=== PATIENT | female | born 1940 | race African-American/Black ===

== ENCOUNTER → 2017-02-03 | Outpatient (CLI) | payer MEDICARE, OTHER ==
[~2017-02-03] MED LIST: ACETAMINOPHEN-H1 TA2 PO; AMARYL1 M1 PO; ASPIR-TRIN325 MG PO; ASPIRIN325 MG PO; COREG25 MG PO; FENOFIBRATE160 MG PO; FUROSEMIDE40 MG PO; KLOR-CON SPRIN10 MEQ PO; MEDROL DOSEPAK4 MG PO; NEURONTIN300 MG PO; NORVASC5 MG PO; VIBRAMYCIN100 MG PO; VICODIN 500 MG-1 TAB PO; ZITHROMAX Z PA250 MG PO
[2017-02-03 13:10] LABS: BASO % 0.4 % (0.0-1.0); EOS # 0.1 10*3/uL (0.0-0.4); EOS % 1.1 % (1.0-4.0); HEMATOCRIT 35.9 % (37.0-47.0); LYMPH # 0.7 10*3/uL (1.3-4.4); LYMPH % 7.8 % (27.0-41.0); MEAN CELL VOLUME 78.2 fl (81.0-99.0); MEAN CORPUSCULAR HGB CONC 30.6 g/dl (33.0-37.0); MONO # 0.5 10*3/uL (0.1-1.0); MONO % 5.9 % (3.0-9.0); NEUT # 7.1 10*3/uL (2.3-7.9); NEUT % 84.4 % (47.0-73.0); PLATELET COUNT AUTOMATED 221 10*3/uL (130-400); RED BLOOD COUNT 4.59 10*6/uL (4.10-5.10); RED CELL DISTRI WIDTH 17.2 % (0-14.5); WHITE BLOOD COUNT 8.4 10*3/uL (4.8-10.8)
[2017-02-03 13:28] LABS: HEMOGLOBIN A1c 5.7 % (4.8-5.6)
[2017-02-03 13:47] LABS: ALBUMIN 3.2 gm/dl (3.1-4.5); BUN 16 mg/dl (7-24); CARBON DIOXIDE 27 mmol/L (21-32); CHLORIDE 106 mmol/L (98-107); GLUCOSE 115 mg/dL (65-99); POTASSIUM 3.5 mmol/L (3.5-5.1); SODIUM 140 mmol/L (136-145)
[2017-02-03 13:55] LABS: ALKALINE PHOSPHATASE 89 U/L (45-117); BILIRUBIN, DIRECT < 0.1 mg/dL (0.0-0.2); BILIRUBIN, TOTAL 0.5 mg/dl (0.2-1.0); CHOLESTEROL 177 mg/dL (<200); EST GLOM FILT AFRICAN AMERICAN 59 ml/min; HDL CHOLESTEROL 64 mg/dl (40-60); IRON 17 ug/dL (50-170); LDL CHOLESTEROL 92 mg/dL (9-159); SGOT/AST 10 IU/L (3-35); SGPT/ALT 12 U/L (12-78); THYROXINE (T4) TOTAL 10.1 ug/dl (4.8-13.9); TOTAL PROTEIN 8.1 gm/dL (6.4-8.2); TRIGLYCERIDES 104 mg/dl (<150); VLDL CHOLESTEROL 21 mg/dL (6-40)
== END | disposition home or self-care (01) ==
LOC: LAB 12:13
PROVIDERS: Family Medicine
DX: E78.00 Pure hypercholesterolemia, unspecified (principal); E55.9 Vitamin D deficiency, unspecified; E11.9 Type 2 diabetes mellitus without complications; I10 Essential (primary) hypertension; I20.9 Angina pectoris, unspecified

== ENCOUNTER → 2017-05-02 | Outpatient (CLI) | payer MEDICARE, OTHER ==
[2017-05-02 13:07] LABS: BASO % 0.4 % (0.0-1.0); EOS # 0.1 10*3/uL (0.0-0.4); EOS % 1.8 % (1.0-4.0); HEMATOCRIT 37.6 % (37.0-47.0); HEMOGLOBIN 11.4 g/dl (12.0-16.0); LYMPH % 18.8 % (27.0-41.0); MEAN CELL VOLUME 79.5 fl (81.0-99.0); MEAN CORPUSCULAR HGB 24.1 pg (27.0-31.0); MEAN CORPUSCULAR HGB CONC 30.3 g/dl (33.0-37.0); MEAN PLATELET VOLUME 10.1 fl (9.6-12.3); MONO # 0.4 10*3/uL (0.1-1.0); MONO % 6.8 % (3.0-9.0); NEUT # 3.9 10*3/uL (2.3-7.9); PLATELET COUNT AUTOMATED 229 10*3/uL (130-400); RED BLOOD COUNT 4.73 10*6/uL (4.10-5.10); RED CELL DISTRI WIDTH 16.6 % (0-14.5); WHITE BLOOD COUNT 5.4 10*3/uL (4.8-10.8)
[2017-05-02 13:33] LABS: BUN 19 mg/dl (7-24); CARBON DIOXIDE 26 mmol/L (21-32); CHLORIDE 108 mmol/L (98-107); EST GLOM FILT AFRICAN AMERICAN > 60 ml/min; GLUCOSE 95 mg/dL (65-99); IRON 42 ug/dL (50-170); POTASSIUM 3.5 mmol/L (3.5-5.1); SODIUM 144 mmol/L (136-145)
== END | disposition home or self-care (01) ==
LOC: LAB 12:43
PROVIDERS: Family Medicine
DX: N18.9 Chronic kidney disease, unspecified (principal); D63.1 Anemia in chronic kidney disease

== ENCOUNTER → 2017-06-09 | Outpatient (CLI) | payer MEDICARE, OTHER ==
[2017-06-09 12:54] LABS: BASO % 0.3 % (0.0-1.0); EOS # 0.2 10*3/uL (0.0-0.4); EOS % 2.3 % (1.0-4.0); HEMATOCRIT 40.8 % (37.0-47.0); HEMOGLOBIN 12.4 g/dl (12.0-16.0); LYMPH # 1.1 10*3/uL (1.3-4.4); MEAN CELL VOLUME 79.2 fl (81.0-99.0); MEAN CORPUSCULAR HGB 24.1 pg (27.0-31.0); MEAN CORPUSCULAR HGB CONC 30.4 g/dl (33.0-37.0); MEAN PLATELET VOLUME 9.9 fl (9.6-12.3); MONO # 0.4 10*3/uL (0.1-1.0); MONO % 6.2 % (3.0-9.0); NEUT # 4.9 10*3/uL (2.3-7.9); PLATELET COUNT AUTOMATED 257 10*3/uL (130-400); RED BLOOD COUNT 5.15 10*6/uL (4.10-5.10); RED CELL DISTRI WIDTH 16.1 % (0-14.5); WHITE BLOOD COUNT 6.6 10*3/uL (4.8-10.8)
[2017-06-09 13:30] LABS: ALBUMIN 3.8 gm/dl (3.1-4.5); ALKALINE PHOSPHATASE 103 U/L (45-117); BILIRUBIN, DIRECT < 0.1 mg/dL (0.0-0.2); BILIRUBIN, TOTAL 0.6 mg/dl (0.2-1.0); BUN 20 mg/dl (7-24); CARBON DIOXIDE 29 mmol/L (21-32); CHLORIDE 106 mmol/L (98-107); EST GLOM FILT AFRICAN AMERICAN > 60 ml/min; GLUCOSE 90 mg/dL (65-99); SGOT/AST 13 IU/L (3-35); SGPT/ALT 10 U/L (12-78); SODIUM 140 mmol/L (136-145); TOTAL PROTEIN 8.9 gm/dL (6.4-8.2)
[2017-06-09 14:11] LABS: HEMOGLOBIN A1c 5.8 % (4.8-5.6)
== END | disposition home or self-care (01) ==
LOC: LAB 12:26
PROVIDERS: Family Medicine
DX: I10 Essential (primary) hypertension (principal); E11.9 Type 2 diabetes mellitus without complications

== ENCOUNTER → 2017-09-18 | Outpatient (CLI) | payer MEDICARE, OTHER ==
[2017-09-18 12:25] LABS: BASO % 0.4 % (0.0-1.0); EOS # 0.1 10*3/uL (0.0-0.4); EOS % 2.6 % (1.0-4.0); HEMATOCRIT 35.4 % (37.0-47.0); HEMOGLOBIN 10.6 g/dl (12.0-16.0); LYMPH # 0.7 10*3/uL (1.3-4.4); LYMPH % 13.6 % (27.0-41.0); MEAN CELL VOLUME 79.6 fl (81.0-99.0); MEAN CORPUSCULAR HGB 23.8 pg (27.0-31.0); MEAN CORPUSCULAR HGB CONC 29.9 g/dl (33.0-37.0); MEAN PLATELET VOLUME 10.2 fl (9.6-12.3); MONO # 0.4 10*3/uL (0.1-1.0); NEUT % 76.2 % (47.0-73.0); PLATELET COUNT AUTOMATED 213 10*3/uL (130-400); RED BLOOD COUNT 4.45 10*6/uL (4.10-5.10); RED CELL DISTRI WIDTH 16.5 % (0-14.5); WHITE BLOOD COUNT 5.3 10*3/uL (4.8-10.8)
[2017-09-18 12:33] LABS: ALBUMIN 3.3 gm/dl (3.1-4.5); ALKALINE PHOSPHATASE 92 U/L (45-117); BILIRUBIN, DIRECT < 0.1 mg/dL (0.0-0.2); BUN 21 mg/dl (7-24); CHLORIDE 111 mmol/L (98-107); CREATININE 1.05 mg/dL (0.55-1.02); IRON 29 ug/dL (50-170); POTASSIUM 3.7 mmol/L (3.5-5.1); SGOT/AST 11 IU/L (3-35); SGPT/ALT 10 U/L (12-78); SODIUM 143 mmol/L (136-145); TOTAL PROTEIN 8.2 gm/dL (6.4-8.2)
== END | disposition home or self-care (01) ==
LOC: LAB 11:34
PROVIDERS: Family Medicine
DX: D64.9 Anemia, unspecified (principal); E11.9 Type 2 diabetes mellitus without complications; I10 Essential (primary) hypertension

== ENCOUNTER 2017-12-09 12:34 | Inpatient (IN) | payer MEDICARE, OTHER ==
[~2017-12-09] VITALS: Ht 160 cm; Wt 112.3 kg
--- NOTE | ~2017-12-09 | CON ---
[place], [place] REPORT OF CONSULTATION NAME: BENJAMIN WATSON UNIT #: [id number] ROOM: 412 DOCTOR: KRISTIE WITT [facility],LORELEI BIRTHDATE: [birth year] DOS: 12/11/2017 HISTORY OF PRESENT ILLNESS: The patient is a 77-year-old female , came in with the wound on both lower extremities. The patient has quit smoking several years ago and the vascular study shows bilateral popliteal disease and also left superficial femoral artery, severe disease. By revascularization, these vessels were fully bilateral wounds may improve. Denies any diabetes. The patient with according to Franklyn classification 5 with tissue damage from the peripheral arterial disease and popliteals are not palpable. PHYSICAL EXAMINATION: GENERAL: Not in any acute distress. VITAL SIGNS: Stable. EXTREMITIES: Diminished pulses with popliteal and diminished perfusion. LUNGS: No rales heard. HEART: S1, S2 regular. No gallops heard. ABDOMEN: Soft, obese. No gross focal neurological deficit noted. LABORATORY DATA: Hemoglobin 9.8, creatinine 1.24. DIAGNOSES: 1. 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 2. Peripheral neuropathy, severe peripheral arterial disease. 3. The patient also has a history of dyslipidemia. LORELEI FLOWERS MD CM:CONSTR:REPORT OF CONSULTATION 12/15/17 0852 interface GLADIS ANGELA DO and NETTA ANTHONY DO
--- NOTE | ~2017-12-09 | CON ---
[place], [place] REPORT OF CONSULTATION NAME[id number] UNIT #: [id number] ROOM: 412 DOCTOR: KRISTIE WITT [facility] BIRTHDATE: [birth year] DOS: 12/11/2017 HISTORY OF PRESENT ILLNESS: The patient has a bilateral wounds on the lower extremity. Apparently for several months and the patient has intermittent claudication, history of hypertension, diabetes, and moderate obesity. Denies any chest discomfort, no significant dyspnea. The patient of Dr. Sha Bernal. Peripheral artery study is abnormal, severe lower extremity of both legs and they were limiting the chance of the healing because of severe peripheral arterial disease and review of the noninvasive testing. The patient has a pain in the lower extremities also significantly critical peripheral artery disease, below the knee may be considered unlikely for any inlet vessel disease. PHYSICAL EXAMINATION: GENERAL: Not in distress except pain in the lower extremities. VITAL SIGNS: Stable. EXTREMITIES: Warm, not diaphoretic. NECK: No jugular venous distention. LUNGS: No rales heard. HEART: S1, S2 regular. ABDOMEN: Soft, obese. EXTREMITIES: Diminished popliteal pulses on both lower extremities. Wounds on both lower extremities. NEUROLOGIC: No gross focal neurological deficit noted. IMPRESSION: The patient has a history of microcytic anemia, malnutrition, hypertension, hypertensive cardiovascular disease, peripheral neuropathy, diabetes mellitus type 2 and also dyslipidemia. PLAN: We will take her to [place] and do the angiogram and revascularization. Thank you very much for asking me to see the patient. I will follow the patient. LORELEI FLOWERS MD CM:CONSTR:REPORT OF CONSULTATION 12/15/17 0852 interface
[2017-12-09 13:00] VITALS: BP 163/75
[2017-12-09 13:20] VITALS: BP 163/75
[2017-12-09 16:00] VITALS: BP 178/74
[2017-12-09 16:39] LABS: BASO % 0.3 % (0.0-1.0); EOS # 0.2 10*3/uL (0.0-0.4); EOS % 1.6 % (1.0-4.0); HEMATOCRIT 34.9 % (37.0-47.0); HEMOGLOBIN 10.4 g/dl (12.0-16.0); LYMPH % 8.9 % (27.0-41.0); MEAN CELL VOLUME 74.7 fl (81.0-99.0); MEAN CORPUSCULAR HGB 22.3 pg (27.0-31.0); MEAN CORPUSCULAR HGB CONC 29.8 g/dl (33.0-37.0); MEAN PLATELET VOLUME 9.4 fl (9.6-12.3); MONO # 0.5 10*3/uL (0.1-1.0); MONO % 4.9 % (3.0-9.0); NEUT # 9.2 10*3/uL (2.3-7.9); NEUT % 83.9 % (47.0-73.0); PLATELET COUNT AUTOMATED 371 10*3/uL (130-400); RED BLOOD COUNT 4.67 10*6/uL (4.10-5.10); RED CELL DISTRI WIDTH 17.4 % (0-14.5)
[2017-12-09 16:47] LABS: INTERNATIONAL NORM RATIO 1.1 (2.0-3.5)
[2017-12-09 16:56] LABS: ALBUMIN 2.8 gm/dl (3.1-4.5); CREATININE 1.26 mg/dL (0.55-1.02); POTASSIUM 3.7 mmol/L (3.5-5.1); TOTAL PROTEIN 8.3 gm/dL (6.4-8.2)
[2017-12-09 20:00] VITALS: BP 167/66
[2017-12-10] VITALS: BP 148/62
[2017-12-10 06:27] LABS: BASO % 0.3 % (0.0-1.0); EOS # 0.2 10*3/uL (0.0-0.4); HEMATOCRIT 33.3 % (37.0-47.0); HEMOGLOBIN 9.8 g/dl (12.0-16.0); LYMPH # 1.1 10*3/uL (1.3-4.4); LYMPH % 13.6 % (27.0-41.0); MEAN CORPUSCULAR HGB 22.4 pg (27.0-31.0); MEAN CORPUSCULAR HGB CONC 29.4 g/dl (33.0-37.0); MEAN PLATELET VOLUME 9.6 fl (9.6-12.3); MONO # 0.5 10*3/uL (0.1-1.0); MONO % 6.3 % (3.0-9.0); NEUT # 6.1 10*3/uL (2.3-7.9); NEUT % 77.3 % (47.0-73.0); PLATELET COUNT AUTOMATED 343 10*3/uL (130-400); RED BLOOD COUNT 4.38 10*6/uL (4.10-5.10); RED CELL DISTRI WIDTH 17.5 % (0-14.5); WHITE BLOOD COUNT 7.9 10*3/uL (4.8-10.8)
[2017-12-10 06:38] LABS: ALBUMIN 2.4 gm/dl (3.1-4.5); PHOSPHOROUS 2.6 mg/dL (2.5-4.9); POTASSIUM 3.8 mmol/L (3.5-5.1); TOTAL PROTEIN 7.6 gm/dL (6.4-8.2)
[2017-12-10 06:45] LABS: INTERNATIONAL NORM RATIO 1.1 (2.0-3.5)
[2017-12-10 06:47] LABS: CREATININE 1.24 mg/dL (0.55-1.02); FREE T4 1.29 ng/dl (0.76-1.46); THYROID STIM HORMONE (HS) 2.44 uIU/ml (0.358-4.75)
[2017-12-10 07:46] LABS: VITAMIN D, 25-HYDROXY 14.2 ng/mL (30-100)
[2017-12-10 08:00] VITALS: BP 174/68
[2017-12-10 12:00] VITALS: BP 150/54
[2017-12-10 16:00] VITALS: BP 157/58
[2017-12-10 20:00] VITALS: BP 145/64
[2017-12-11] VITALS: BP 143/63
[2017-12-11 06:18] LABS: BASO % 0.3 % (0.0-1.0); EOS # 0.2 10*3/uL (0.0-0.4); EOS % 2.2 % (1.0-4.0); HEMATOCRIT 31.1 % (37.0-47.0); HEMOGLOBIN 9.1 g/dl (12.0-16.0); LYMPH # 1.1 10*3/uL (1.3-4.4); MEAN CORPUSCULAR HGB 22.2 pg (27.0-31.0); MEAN CORPUSCULAR HGB CONC 29.3 g/dl (33.0-37.0); MEAN PLATELET VOLUME 9.8 fl (9.6-12.3); MONO # 0.5 10*3/uL (0.1-1.0); MONO % 6.8 % (3.0-9.0); NEUT # 4.9 10*3/uL (2.3-7.9); NEUT % 73.4 % (47.0-73.0); PLATELET COUNT AUTOMATED 306 10*3/uL (130-400); RED BLOOD COUNT 4.09 10*6/uL (4.10-5.10); RED CELL DISTRI WIDTH 17.6 % (0-14.5); WHITE BLOOD COUNT 6.7 10*3/uL (4.8-10.8)
[2017-12-11 06:28] LABS: ALBUMIN 2.1 gm/dl (3.1-4.5); CREATININE 1.22 mg/dL (0.55-1.02); POTASSIUM 3.9 mmol/L (3.5-5.1); TOTAL PROTEIN 6.9 gm/dL (6.4-8.2)
[2017-12-11 08:00] VITALS: BP 169/60
== END 2017-12-11 08:25 | disposition short-term general hospital (02) | DRG 602 ==
LOC: 4E 12:34
PROVIDERS: Family Medicine
DX: L03.115 Cellulitis of right lower limb (principal); N17.0 Acute kidney failure with tubular necrosis; E11.42 Type 2 diabetes mellitus with diabetic polyneuropathy; E11.51 Type 2 diabetes mellitus with diabetic peripheral angiopathy without gangrene; S00.83XA Contusion of other part of head, initial encounter; D72.810 Lymphocytopenia; L97.229 Non-pressure chronic ulcer of left calf with unspecified severity; E44.1 Mild protein-calorie malnutrition; Z68.41 Body mass index [BMI] 40.0-44.9, adult; L97.219 Non-pressure chronic ulcer of right calf with unspecified severity; L03.116 Cellulitis of left lower limb; E83.41 Hypermagnesemia; E78.5 Hyperlipidemia, unspecified; L98.499 Non-pressure chronic ulcer of skin of other sites with unspecified severity; W06.XXXA Fall from bed, initial encounter; Y92.230 Patient room in hospital as the place of occurrence of the external cause; Z96.1 Presence of intraocular lens; Z96.651 Presence of right artificial knee joint; D50.9 Iron deficiency anemia, unspecified; D72.823 Leukemoid reaction; E66.9 Obesity, unspecified; I11.9 Hypertensive heart disease without heart failure; B96.89 Other specified bacterial agents as the cause of diseases classified elsewhere; I77.89 Other specified disorders of arteries and arterioles; B95.1 Streptococcus, group B, as the cause of diseases classified elsewhere; Z98.49 Cataract extraction status, unspecified eye; Z92.21 Personal history of antineoplastic chemotherapy; Z92.3 Personal history of irradiation; Z90.710 Acquired absence of both cervix and uterus; Z87.891 Personal history of nicotine dependence; Z79.82 Long term (current) use of aspirin; Z79.899 Other long term (current) drug therapy; Z85.038 Personal history of other malignant neoplasm of large intestine; Y93.89 Activity, other specified; Y99.8 Other external cause status

== ENCOUNTER → 2018-08-12 | Outpatient (CLI) | payer MEDICARE, OTHER ==
[2018-08-12 13:28] LABS: BASO % 0.2 % (0.0-1.0); EOS # 0.1 10*3/uL (0.0-0.4); EOS % 1.6 % (1.0-4.0); HEMOGLOBIN 11.9 g/dl (12.0-16.0); LYMPH # 1.1 10*3/uL (1.3-4.4); LYMPH % 24.5 % (27.0-41.0); MEAN CELL VOLUME 81.1 fl (81.0-99.0); MEAN CORPUSCULAR HGB 24.7 pg (27.0-31.0); MEAN CORPUSCULAR HGB CONC 30.5 g/dl (33.0-37.0); MONO # 0.3 10*3/uL (0.1-1.0); MONO % 6.2 % (3.0-9.0); NEUT # 2.9 10*3/uL (2.3-7.9); NEUT % 67.3 % (47.0-73.0); PLATELET COUNT AUTOMATED 234 10*3/uL (130-400); RED BLOOD COUNT 4.81 10*6/uL (4.10-5.10); RED CELL DISTRI WIDTH 15.3 % (0-14.5); WHITE BLOOD COUNT 4.4 10*3/uL (4.8-10.8)
[2018-08-12 13:50] LABS: ALBUMIN 3.4 gm/dl (3.1-4.5); BILIRUBIN, DIRECT 0.1 mg/dL (0.0-0.2); CREATININE 1.12 mg/dL (0.55-1.02); POTASSIUM 3.7 mmol/L (3.5-5.1); THYROXINE (T4) TOTAL 9.2 ug/dl (4.8-13.9); TOTAL PROTEIN 8.4 gm/dL (6.4-8.2)
[2018-08-12 13:56] LABS: THYROID STIM HORMONE (HS) 0.393 uIU/ml (0.358-4.75)
== END | disposition home or self-care (01) ==
LOC: LAB 12:53
PROVIDERS: Family Medicine
DX: D64.9 Anemia, unspecified (principal); R73.9 Hyperglycemia, unspecified; Z79.899 Other long term (current) drug therapy

== ENCOUNTER 2019-01-12 15:48 | Inpatient (IN) | payer MEDICARE, OTHER ==
[~2019-01-12] VITALS: Ht 165.1 cm; Wt 117.3 kg
--- NOTE | ~2019-01-12 | EKG ---
[place], [place] ELECTROCARDIOGRAM REPORT NAME: LU WATSON UNIT #: [id number] ROOM: 411 DOCTOR: ADRY DRAFT REPORT BIRTHDATE: [birth year] [facility] Test Date: 2019-01-12 Test Time: 16:35:31 Pat Name: LU WATSON Department: Room: 411 Gender: F Nut Sorter Operator: Lu Faulkner : 1940 Requested By: ASHELY LANZA Order Number: [id number] Reading MD: Carlene Barnhart MD Measurements Intervals [place] Rate: 63 P: 81 ID: [id number] QRS: 63 QRSD: 102 T: 114 QT: 393 QTc: 403 Interpretive Statements Sinus rhythm Repol abnrm suggests ischemia, lateral leads ST elevation, consider inferior injury Baseline wander in lead(s) II,V2 No previous ECG available for comparison Electronically Signed On 01-15-2019 9:49:58 PDT by Carlene Barnhart MD CM:EKGRPT:ELECTROCARDIOGRAM REPORT [id number] ASHELY STEWART DRAFT REPORT ASHELY LANZA DO
[2019-01-12 16:00] VITALS: BP 148/54
[2019-01-12 16:33] LABS: BASO % 0.3 % (0.0-1.0); EOS # 0.1 10*3/uL (0.0-0.4); EOS % 1.7 % (1.0-4.0); HEMATOCRIT 33.1 % (37.0-47.0); HEMOGLOBIN 9.7 g/dl (12.0-16.0); LYMPH # 0.7 10*3/uL (1.3-4.4); LYMPH % 11.3 % (27.0-41.0); MEAN CELL VOLUME 80.1 fl (81.0-99.0); MEAN CORPUSCULAR HGB 23.5 pg (27.0-31.0); MEAN CORPUSCULAR HGB CONC 29.3 g/dl (33.0-37.0); MEAN PLATELET VOLUME 9.6 fl (9.6-12.3); MONO # 0.4 10*3/uL (0.1-1.0); MONO % 6.5 % (3.0-9.0); NEUT # 5.2 10*3/uL (2.3-7.9); NEUT % 79.9 % (47.0-73.0); PLATELET COUNT AUTOMATED 272 10*3/uL (130-400); RED BLOOD COUNT 4.13 10*6/uL (4.10-5.10); RED CELL DISTRI WIDTH 16.2 % (0-14.5); WHITE BLOOD COUNT 6.5 10*3/uL (4.8-10.8)
[2019-01-12 16:48] LABS: ACT PARTIAL THROMBO TIME 23.5 SECONDS (20.8-31.5); INTERNATIONAL NORM RATIO 1.1 (2.0-3.5)
[2019-01-12 17:00] LABS: ALBUMIN 2.8 gm/dl (3.1-4.5); ALKALINE PHOSPHATASE 81 U/L (45-117); BUN 26 mg/dl (7-24); CHLORIDE 110 mmol/L (98-107); CREATININE 1.13 mg/dL (0.55-1.02); LIPASE 153 U/L (73-393); POTASSIUM 4.1 mmol/L (3.5-5.1); SGOT/AST 10 IU/L (3-35); SGPT/ALT 11 U/L (12-78); SODIUM 140 mmol/L (136-145); TOTAL PROTEIN 8.1 gm/dL (6.4-8.2); TROPONIN I < 0.015 ng/ml (<0.045)
--- NOTE | 2019-01-12 17:00 | NUR ---
PT CRYING OUT IN PAIN AT THIS TIME. DR LANZA NOTIFIED. SEE NEW ORDERS.
[2019-01-12 18:00] VITALS: BP 134/66
--- NOTE | 2019-01-12 18:00 | NUR ---
PT REPORTS THAT PAIN MEDICATION WAS EFFECTIVE AT THIS TIME. PT RATES PAIN 3/10 AT THIS TIME
[2019-01-12 19:43] VITALS: BP 130/60
[2019-01-12 20:00] VITALS: BP 140/86
--- NOTE | 2019-01-12 20:10 | NUR ---
Time: 2009 A 78 year old FEMALE admitted to 4E under services of NETTA ABDALLA DO. Pt. arrived via stretcher from ER. Chief complaint: INTRACTABLE PAIN, UNABLE TO AMBULATE. MARTINEZ GUERRERO
[2019-01-12] MEDS ORDERED: LISINOPRIL10 M1 PO (20:16)
[2019-01-12] MEDS ORDERED: CLOPIDOGREL75 MG PO (20:17)
--- NOTE | 2019-01-12 20:19 | NUR ---
MED REC UP TO DATE PER PT LIST PROVIDED
--- NOTE | 2019-01-12 21:29 | NUR ---
MORPHINE GIVEN AT THIS TIME FOR C/O BACK PAIN RATED 10/10. WILL CONT TO TANO.
--- NOTE | 2019-01-12 22:58 | NUR ---
PRN MEDICATION APPEARS EFFECTIVE. PT RESTING, RESPIRATIONS EASY AND REGULAR ON ROOM AIR . NO S/S DISTRESS.
[2019-01-13] VITALS: BP 150/47
--- NOTE | 2019-01-13 03:51 | NUR ---
DR BASILIO ANSWERING SERVICE NOTIFIED OF CONSULT
[2019-01-13 07:11] LABS: BASO % 0.2 % (0.0-1.0); EOS # 0.1 10*3/uL (0.0-0.4); EOS % 1.7 % (1.0-4.0); HEMATOCRIT 31.2 % (37.0-47.0); HEMOGLOBIN 9.2 g/dl (12.0-16.0); LYMPH # 0.8 10*3/uL (1.3-4.4); LYMPH % 11.9 % (27.0-41.0); MEAN CELL VOLUME 79.8 fl (81.0-99.0); MEAN CORPUSCULAR HGB 23.5 pg (27.0-31.0); MEAN CORPUSCULAR HGB CONC 29.5 g/dl (33.0-37.0); MEAN PLATELET VOLUME 9.8 fl (9.6-12.3); MONO # 0.5 10*3/uL (0.1-1.0); MONO % 6.8 % (3.0-9.0); NEUT # 5.2 10*3/uL (2.3-7.9); NEUT % 79.1 % (47.0-73.0); PLATELET COUNT AUTOMATED 290 10*3/uL (130-400); RED BLOOD COUNT 3.91 10*6/uL (4.10-5.10); RED CELL DISTRI WIDTH 16.3 % (0-14.5); WHITE BLOOD COUNT 6.6 10*3/uL (4.8-10.8)
[2019-01-13 07:35] LABS: BUN 22 mg/dl (7-24); CHLORIDE 112 mmol/L (98-107); CHOLESTEROL 153 mg/dL (<200); CREATININE 1.03 mg/dL (0.55-1.02); FREE T4 1.21 ng/dl (0.76-1.46); HDL CHOLESTEROL 46 mg/dl (40-60); LDL CHOLESTEROL 84 mg/dL (9-159); POTASSIUM 3.9 mmol/L (3.5-5.1); SODIUM 143 mmol/L (136-145); TRIGLYCERIDES 114 mg/dl (<150); VLDL CHOLESTEROL 23 mg/dL (6-40)
--- NOTE | 2019-01-13 07:55 | NUR ---
Alert and oriented x3. Lungs diminished and clear throughout. Lower legs discolored with scarring areas noted. C/o pain to left hip and left knee. States pain is 5/10, denies need for pain med at this time.
[2019-01-13 08:00] VITALS: BP 161/70
[2019-01-13 08:58] LABS: VITAMIN D, 25-HYDROXY 11.3 ng/mL (30-100)
--- NOTE | 2019-01-13 09:00 | NUR ---
case management attempted to visit with patient, nursing staff with patient at this time, will see later today
--- NOTE | 2019-01-13 10:07 | NUR ---
Medicated with norco per prn order for complaints of pain to left hip and left knee.
--- NOTE | 2019-01-13 10:45 | NUR ---
States that norco helped to relieve pain.
--- NOTE | 2019-01-13 11:07 | NUR ---
BENJAMIN WATSON [id number] Please refer to the physician's history and physical for past medical history, comorbid conditions, and allergies. Diagnosis: INTRACTABLE PAIN UNABLE TO AMBULATE Arnoldo Score: 15,AT RISK WOUND DESCRIPTIONS: Location of the wound: RIGHT LOWER LEG Thickness: Full Size: 3.5cm X 2.8cm X 0.1cm Tunneling: NONE Undermining: NONE Sinus Tract: NONE Presence of Exudate: Serous Amount: Light Color: Yellow, Red Odor: None Periwound Skin Appearance: Scar Wound edges: APPROIMATED Pain (associated with wound): DENIED AT TIME OF ASSESSMENT How does patient state this happened? PATIENT STATES THIS WOUND HAS BEEN "GOING ON" FOR APPROXIMATELY ONE YEAR. If wound is on legs/feet or hands, capillary refill time, pulses, color temp, sensation: CAP REFILL < 3 SECONDS. COLOR AND TEMP WNL. Surface the patient is resting on: Isoflex SKIN PREVENTION RECOMMENDATION: 1. Pressure redistribution support surface as appropriate 2. Elevate heels 3. Remove boots/TEDS every shift and reapply 4. Head of bed 30 degrees as tolerated 5. Assess nutrition and hydration 6. Manage moisture 7. Avoid the use of containment devices while in bed 8. Use absorptive products on surfaces limit layers of linens on bed 9. Turn and reposition every 1-2 hours in bed and every 1 hour in chair as tolerated 10. Weight shifts every 15 minutes while up in chair 11. Offloading with pillows or device to keep heels elevated off bed 12. Monitor skin at least every shift 13. Inspect under medical devices twice a day WOUND TREATMENT RECOMMENDATIONS: FULL THICKNESS GUIDELINES TO RIGHT LOWER LEG: CLEANSE WITH NSS APPLY SUREPREP ALLOW TO DRY. APPLY THERAHONEY AND COVER WITH OPTIFOAM GENTLE.
--- NOTE | 2019-01-13 11:07 | NUR ---
PHYSICAL THERAPY PT orders received. Questionable fracture left LE with ortho ordering addtional testing at this time. Will await determination if fracture and orth clearance. Thank you for this referral. Tracie Renteria,PT
--- NOTE | 2019-01-13 11:08 | NUR ---
Occupational Therapy referral received and chart review completed. Questionable non displaced left hip fx. MRI ordered and Dr. Cruz consult. Awaiting above results before OT eval can be completed. Maria T Srivastava OTR/l
--- NOTE | 2019-01-13 11:33 | NUR ---
Medicated with morphine iv per prn order prior to pt going to MRI. States she is having knee pain and hip pain.
[2019-01-13 12:00] VITALS: BP 159/69
--- NOTE | 2019-01-13 13:40 | NUR ---
MRI dept called and states that pt could not tolerate MRI, states that pt must be able to lift arms up over head to do and she could not. States they also spoke with resident physican working with Dr. Cruz regarding this and they are aware.
--- NOTE | 2019-01-13 14:28 | NUR ---
Dr. Ponce notified of wound care recommendations.
[2019-01-13 16:00] VITALS: BP 156/60
--- NOTE | 2019-01-13 16:56 | NUR ---
Nursing screen and Occupational Therapy referral received. Thank you. Maria T Srivastava OTR/l
--- NOTE | 2019-01-13 17:08 | NUR ---
PHYSICAL THERAPY Nursing screen received. PT orders also received. Thank you. Tracie Renteria,PT
[2019-01-13 20:00] VITALS: BP 139/73
[2019-01-14 08:00] VITALS: BP 152/63
--- NOTE | 2019-01-14 09:00 | NUR ---
case management visits with patient, patient states she lives at home with family, she states she hasn't been getting around very well, discussed with her a short term residential for rehab prior to going back home. patient declined, she stated she was at a short term residential in the past and did not want to return. also discussed with her VNA and she was receptivnt to this, given choice of companies, she chose [employer], will notify [facility] when patient is medically stable for discharge
--- NOTE | 2019-01-14 09:30 | NUR ---
States norco was helpful for pain relief to left knee.
--- NOTE | 2019-01-14 10:31 | NUR ---
PHYSICAL THERAPY PAtient discussed in discharge planning. Dr. Patel requested PT inquire from Dr. Cruz if patient is able to proced with PT and gait secondary to patient not being able to complete MRI. Contacted Dr. Calderon' office and left message. Awaiting reply. Thank you. Tracie Renteria,PT
[2019-01-14 12:00] VITALS: BP 153/52
--- NOTE | 2019-01-14 13:13 | NUR ---
PHYSICAL THERAPY Dr. Calderon office retuned call. Dr Calderon orders no PT for transfers and gait until new xrays are taken/read. OK for AROM. Will await PT clearance from ortho prior to initiating PT for SNF evluation. Thank you. Tracie Renteria,PT
[2019-01-14 16:00] VITALS: BP 138/55
--- NOTE | 2019-01-14 16:23 | NUR ---
Dressing applied to rt leg per orders.
--- NOTE | 2019-01-14 17:00 | NUR ---
Notified by PA that unable to obtain urine speciman after pt used bedpan, pt was removed from bedpan by nursing utility supervisor boat and plant and urine was discarded.
[2019-01-14 20:00] VITALS: BP 150/58
[2019-01-14 20:48] LABS: BILIRUBIN NEGATIVE (NEGATIVE); BLOOD NEGATIVE (NEGATIVE); CLARITY SL CLOUDY (CLEAR); COLOR YELLOW (YELLOW); GLUCOSE NEGATIVE (NEGATIVE); KETONE NEGATIVE (NEGATIVE); LEUKO ESTERASE NEGATIVE (NEGATIVE); NITRITE NEGATIVE (NEGATIVE); PH 5.5 (5.0-9.0); SPECIFIC GRAVITY 1.025 (1.005-1.030)
[2019-01-14 20:55] LABS: BACTERIA 2+; EPITHELIAL CELLS 16-20; RBC 0-2 rbc/hpf (0-2)
[2019-01-15] VITALS: BP 129/53
[2019-01-15 06:51] LABS: BASO % 0.2 % (0.0-1.0); EOS # 0.1 10*3/uL (0.0-0.4); EOS % 2.6 % (1.0-4.0); HEMATOCRIT 29.1 % (37.0-47.0); HEMOGLOBIN 8.6 g/dl (12.0-16.0); LYMPH # 0.8 10*3/uL (1.3-4.4); LYMPH % 14.7 % (27.0-41.0); MEAN CELL VOLUME 80.4 fl (81.0-99.0); MEAN CORPUSCULAR HGB 23.8 pg (27.0-31.0); MEAN CORPUSCULAR HGB CONC 29.6 g/dl (33.0-37.0); MEAN PLATELET VOLUME 9.7 fl (9.6-12.3); MONO # 0.4 10*3/uL (0.1-1.0); MONO % 7.4 % (3.0-9.0); NEUT # 4.1 10*3/uL (2.3-7.9); NEUT % 74.7 % (47.0-73.0); PLATELET COUNT AUTOMATED 256 10*3/uL (130-400); RED BLOOD COUNT 3.62 10*6/uL (4.10-5.10); RED CELL DISTRI WIDTH 16.3 % (0-14.5); WHITE BLOOD COUNT 5.4 10*3/uL (4.8-10.8)
[2019-01-15 07:14] LABS: BUN 21 mg/dl (7-24); CHLORIDE 111 mmol/L (98-107); CREATININE 1.01 mg/dL (0.55-1.02); POTASSIUM 3.9 mmol/L (3.5-5.1); SODIUM 141 mmol/L (136-145)
[2019-01-15 08:00] VITALS: BP 144/61
--- NOTE | 2019-01-15 11:44 | NUR ---
Occupational Therapy evaluation completed on 4 with full eval to follow. PRecautions include fall risk; bed alarm, left hip pain, WBAT per Dr. Cruz after negative knee xray and consult,IV UE, high complexity level [address] via chart review, testing and evaluation. Recommend OT per pOC and SNF for max safety and independence, however patient refuses SNF and insists upon home w/ family and home health OT,PT,SN. Thank you. Maria T Srivastava OTR/l
[2019-01-15 12:00] VITALS: BP 146/56
--- NOTE | 2019-01-15 12:07 | NUR ---
PHYSICAL THERAPY Ortho orders to proced WBAT LLE received. Thank you. Patient evaluated on 4, full evaluation to follow. Continue with PT as per plan of care with fall, WBAT LLE, mod to amx (A) x 2, alarm and acute debility precautions. Will require SNF but refuses. Home with 26/05 family (A) and home health RN, PT, OT and aides. PAtient is high complexity via chart review, tests and evaluation: 99041. Thank you for this referral. Tracie Renteria,PT
--- NOTE | 2019-01-15 12:19 | NUR ---
PATIENT REQUESTING PAIN MEDICATION FOR BACK AND LEG PAIN RATES 8/10 AT THIS TIME. NORCO ADMINISTERED PRESCRIBED. WILL MONITOR FOR EFFECTIVENESS.
--- NOTE | 2019-01-15 13:19 | NUR ---
PATIENT STATES THAT NORCO WAS SOMEWHAT EFFECTIVE FOR HER PAIN. RATED PAIN AT 5/10 AT THIS TIME. WILL CONTINUE TO MONITOR.
[2019-01-15 16:00] VITALS: BP 153/57
--- NOTE | 2019-01-15 16:24 | NUR ---
PATIENT REQUESTING PAIN MEDICATION FOR BACK AND LEG PAIN. NORCO ADMINISTERED PRESCRIBED. WILL MONITOR FOR EFFECTIVENESS.
--- NOTE | 2019-01-15 17:24 | NUR ---
PATIENT RESTING WITH EYE CLOSED AT THIS TIME. DOES NOT APPEAR TO BE ANY DISTRESS. STATES THAT PAIN IS A LITTLE BETTER AT THIS TIME. WILL CONITINUE TO MONITOR.
[2019-01-15 20:00] VITALS: BP 152/50
[2019-01-16] VITALS: BP 145/51
[2019-01-16 08:00] VITALS: BP 159/72
--- NOTE | 2019-01-16 09:05 | NUR ---
MORPHINE 2MG GIVEN PER DR LUND REQUEST FOR PT STATED PAIN OF 10.
--- NOTE | 2019-01-16 10:29 | NUR ---
Patient resting quietly with no c/o discomfort. Respirations easy and regular. Vital signs stable. No overt distress. LAUREN ROTHMAN
[2019-01-16 12:00] VITALS: BP 146/62
--- NOTE | 2019-01-16 12:06 | NUR ---
PHYSICAL THERAPY Patient seen this AM for her therapy session, supine in bed at time of arrival. Bed mobility supine<>sit with [id number] for UE/LE management. Cues provided for use of bed rail but pt states she is having discomfort in L UE this date and demo limited ROM. Pt performed LE ther-ex in all available planes x10 reps while seated EOB. Pt requiring Mira to remain upright for ~ 4 minutes then progressing to unsupported sitting- pt tolerated ~5 minutes unsupported sitting prior to requesting to lay down. Pt requiring maxAx1 for re-positioning once in bed for max comfort. pt voiced no c/o's this date. Pt supine in bed at session end with call light and tray table within reach. Tavia Edmondson, HAND REAMER
--- NOTE | 2019-01-16 15:18 | NUR ---
RESTING IN BED WATCHING TV. NO C/O AT THIS TIME. RESPS EASY ON RA. CALL LIGHT IN REACH.
[2019-01-16 16:00] VITALS: BP 160/58
--- NOTE | 2019-01-16 16:49 | NUR ---
NORCO 5/325 MG GIVEN FOR C/O "JOINT"/GENERALIZED PAIN,05/12.
[2019-01-16 20:00] VITALS: BP 146/40
[2019-01-17] VITALS: BP 153/64
[2019-01-17 08:00] VITALS: BP 153/67
[2019-01-17 12:00] VITALS: BP 141/66
--- NOTE | 2019-01-17 12:00 | NUR ---
PATIENT MEDICATED WITH NORCO AT THIS TIME FOR COMPLAINTS OF PAIN IN HER NECK, SHOULDER, AND KNEE. WILL MONITOR FOR EFFECTIVENESS.
[2019-01-17 16:00] VITALS: BP 156/63
[2019-01-17 20:00] VITALS: BP 168/64
--- NOTE | 2019-01-17 20:30 | NUR ---
PT RESTING IN BED. NO DISTRESS NOTED. WILL MONITOR CALL LIGHT WITHIN REACH
--- NOTE | 2019-01-17 23:25 | NUR ---
RIGHT LE DRESSING CHANGED ORDERED
[2019-01-18] VITALS: BP 160/78
--- NOTE | 2019-01-18 03:56 | NUR ---
PT RESTING IN BED. EYES CLOSED. CALL LIGHT WITHIN REACH WILL MONITOR
[2019-01-18 06:23] LABS: BASO % 0.4 % (0.0-1.0); EOS # 0.1 10*3/uL (0.0-0.4); EOS % 2.5 % (1.0-4.0); HEMATOCRIT 31.7 % (37.0-47.0); HEMOGLOBIN 9.2 g/dl (12.0-16.0); LYMPH # 0.8 10*3/uL (1.3-4.4); LYMPH % 16.3 % (27.0-41.0); MEAN CELL VOLUME 80.5 fl (81.0-99.0); MEAN CORPUSCULAR HGB 23.4 pg (27.0-31.0); MEAN PLATELET VOLUME 9.9 fl (9.6-12.3); MONO # 0.4 10*3/uL (0.1-1.0); MONO % 7.8 % (3.0-9.0); NEUT # 3.7 10*3/uL (2.3-7.9); NEUT % 72.6 % (47.0-73.0); PLATELET COUNT AUTOMATED 320 10*3/uL (130-400); RED BLOOD COUNT 3.94 10*6/uL (4.10-5.10); RED CELL DISTRI WIDTH 16.2 % (0-14.5); WHITE BLOOD COUNT 5.1 10*3/uL (4.8-10.8)
--- NOTE | 2019-01-18 06:32 | NUR ---
PT RESTING IN BED. EYES CLOSED. NO DISTRESS NOTED. WILL MONITOR
[2019-01-18 06:37] LABS: CREATININE 0.88 mg/dL (0.55-1.02)
[2019-01-18 08:00] VITALS: BP 154/76
--- NOTE | 2019-01-18 09:03 | NUR ---
DR NUNN INFORMED OF Dr. Manzano consult.
--- NOTE | 2019-01-18 09:06 | NUR ---
In to see patient to discuss snf placement again. Patient is now agreeable and requested a referral to [facility]. Contacted facility and faxed referral, 3 night stay completed, waiting on acceptance.
--- NOTE | 2019-01-18 09:35 | NUR ---
OT NOTE Attempted to see pt this A.M. for OT session and upon arrival pt was supine in bed eating her breakfast. Will check back at a later time/date. RACHID Samuels/Aidee
--- NOTE | 2019-01-18 10:00 | NUR ---
PT MEDICATED WITH PRN MORPHINE AT THIS TIME FOR C/O 10/10 PAIN TO LEFT KNEE. WILL REACCESS; MONITOR.
--- NOTE | 2019-01-18 10:33 | NUR ---
PHYSICAL THERAPY pt eating breakfast 9:36 AM, will check back later. Anthony HENRY BRICK AND BLOCKER AID LABOR
--- NOTE | 2019-01-18 11:00 | NUR ---
OT NOTE Second attempt made to see pt this A.M. for OT session and upon arrival pt was crying out in pain rating it a 10/10 in the L knee. Will check back at a later time/date. RACHID Samuels/Aidee
--- NOTE | 2019-01-18 11:16 | NUR ---
PHYSICAL THERAPY Patient was approached by this FIELD PROFESSIONAL for her AM therapy treatment. Patient was in severe L Knee pain and could not participate in therapy session due to the pain. Will check back this afternoon. AMRIK HENRY PTA
--- NOTE | 2019-01-18 11:43 | NUR ---
Patient has been accepted to [facility], 3 night stay complete, patient is ok to go if medically stable for discharge.
[2019-01-18 12:00] VITALS: BP 172/70
--- NOTE | 2019-01-18 12:57 | NUR ---
PT MEDICATED WITH PRN NORCO PER REQUEST SO THAT SHE CAN WORK WITH PHYSICAL THERAPY IN ABOUT AN HOUR. PT RATES PAIN 04/12.
[2019-01-18] MEDS ORDERED: VITAMIN D32000 UNI1 PO (13:22)
[2019-01-18] MEDS ORDERED: HYDROCODONE-AC1 EAC1 PO (13:23)
[2019-01-18] MEDS ORDERED: NEURONTIN300 MG PO (13:23)
--- NOTE | 2019-01-18 13:30 | NUR ---
OT NOTE Pt was seen this P.M. 1:1 for 20 minute OT session. Upon arrival pt was supine in bed. Pt identified by name and and had reports of 5/10 L knee pain. Pt transferred supine to sit EOB with maxA X 2. While sitting EOB challenged pt's sitting balance needed for increased I and enhanced safety, pt was able to maintain P+ sitting balance throughout requiring modA to correct. Pt completed multiple sit to stand transfers from bed level with modA X 2 and use of w/w for UE support. Challenged pt's static standing tolerance needed for increased I in self care tasks and functional transfers and pt was able to tolerate aprox 2 minutes at a time before sitting due to fatigue and/or pain in the L knee. Pt transferred back into bed sit to supine with maxA X 2. There she was left with call light in hand, tray table in place, and bed alarm activated for safety. Continue with rec D/C plan to SNF. RACHID Samuels/Aidee
--- NOTE | 2019-01-18 14:07 | NUR ---
Patient is discharged to [facility], transportation scheduled for 5PM with [place]. [place], nursing a jd edwards all notified. In to see patient, she stated Ravindra is her grandson and she would like to call him regarding her discharge. [phone]. I made several attempts to contact him, the phone would ring multiple times and then a busy signal. Unable to contact.
--- NOTE | 2019-01-18 14:17 | NUR ---
PHYSICAL THERAPY pt presents supine, informed consent given, identified by and name, pt states pain in L knee 03/12, pt had norco pain med 1 hour prior. pt presents supine in bed, bed mobility rolling modAx2 supine to sit, and back to supine maxAx2, static sitting balance CGA, STS FWW x2 modAx2, v/c given for hand placement. static stance x2 w/ FWW 2min CGA. Attampted to take lateral steps, pt unable to weight shift d/t knee pain.ended treatment pt supine in bed w/ call light in reach, bed alarm on, table at side. 1:1 treatment with INJECTION MOLDING OPERATOR 20min. AMRIK HENRY INJECTION MOLDING OPERATOR
--- NOTE | 2019-01-18 14:34 | NUR ---
PHYSICAL THERAPY CO-SIGN I approve of the Phyical Therapy notes written above. JIGAR TAMEZ PT
[2019-01-18 16:00] VITALS: BP 152/70
--- NOTE | 2019-01-18 17:08 | NUR ---
PT DISCHARGED VIA AMBULANCE TO [facility] AT THIS TIME. [place] DISCOMTINUED. VSS. REPORT GIVEN TO RECIEVING UNIT.
--- NOTE | 2019-01-19 15:34 | NUR ---
OCCUPATIONAL THERAPY CO-SIGN I approve of the Occupational Therapy notes written above. CEE HURTADO OTR/Aidee
[2019-05-03] MEDS ORDERED: CYMBALTA60 MG PO (16:59)
[2019-05-04] MEDS ORDERED: COREG12.5 M1 PO (12:49)
[2019-05-07] MEDS ORDERED: VITAMIN D32000 UNI1 PO (10:19)
[2019-05-07] MEDS ORDERED: LASIX40 MG PO (10:19)
== END 2019-01-18 17:08 | disposition other institution (70) | DRG 554 ==
LOC: ED 15:48 → 4E 18:44 → EDHOLD 18:44 → 4E 19:32
PROVIDERS: Emergency Medicine; Internal Medicine Nephrology; Student in an Organized Health Care Education/Training Program; ADMIT Internal Medicine
PROC: 0HBRXZZ Excision of Toe Nail, External Approach (ICD-10-PCS; principal; 2019-01-18)
PROC: 3E0U33Z Introduction of Anti-inflammatory into Joints, Percutaneous Approach (ICD-10-PCS; principal; 2019-01-18)
DX: M17.12 Unilateral primary osteoarthritis, left knee (principal); E44.0 Moderate protein-calorie malnutrition; Z68.41 Body mass index [BMI] 40.0-44.9, adult; R26.2 Difficulty in walking, not elsewhere classified; E78.5 Hyperlipidemia, unspecified; E11.22 Type 2 diabetes mellitus with diabetic chronic kidney disease; D72.810 Lymphocytopenia; D50.9 Iron deficiency anemia, unspecified; E87.8 Other disorders of electrolyte and fluid balance, not elsewhere classified; E11.65 Type 2 diabetes mellitus with hyperglycemia; N18.3 Chronic kidney disease, stage 3 (moderate); D64.9 Anemia, unspecified; I12.9 Hypertensive chronic kidney disease with stage 1 through stage 4 chronic kidney disease, or unspecified chronic kidney disease; Z96.651 Presence of right artificial knee joint; Z96.1 Presence of intraocular lens; E11.42 Type 2 diabetes mellitus with diabetic polyneuropathy; Z85.038 Personal history of other malignant neoplasm of large intestine; Z98.49 Cataract extraction status, unspecified eye; Z90.710 Acquired absence of both cervix and uterus; Z92.21 Personal history of antineoplastic chemotherapy; Z92.3 Personal history of irradiation; Z79.82 Long term (current) use of aspirin; Z79.84 Long term (current) use of oral hypoglycemic drugs

== ENCOUNTER → 2019-04-22 | Outpatient (CLI) | payer MEDICARE, OTHER ==
[~2019-04-22] MED LIST changes: +CLOPIDOGREL75 MG PO; +COREG12.5 M1 PO; +CYMBALTA60 MG PO; +HYDROCODONE-AC1 EAC1 PO; +LASIX40 MG PO; +LISINOPRIL10 M1 PO; +VITAMIN D32000 UNI1 PO
[2019-04-22 10:57] LABS: BASO % 0.2 % (0.0-1.0); EOS # 0.2 10*3/uL (0.0-0.4); EOS % 2.5 % (1.0-4.0); HEMATOCRIT 26.8 % (37.0-47.0); HEMOGLOBIN 7.5 g/dl (12.0-16.0); LYMPH # 0.7 10*3/uL (1.3-4.4); LYMPH % 9.1 % (27.0-41.0); MEAN CELL VOLUME 74.2 fl (81.0-99.0); MEAN CORPUSCULAR HGB 20.8 pg (27.0-31.0); MEAN PLATELET VOLUME 10.2 fl (9.6-12.3); MONO # 0.3 10*3/uL (0.1-1.0); MONO % 3.3 % (3.0-9.0); NEUT # 6.8 10*3/uL (2.3-7.9); NEUT % 84.3 % (47.0-73.0); PLATELET COUNT AUTOMATED 358 10*3/uL (130-400); RED BLOOD COUNT 3.61 10*6/uL (4.10-5.10); RED CELL DISTRI WIDTH 19.7 % (0-14.5); WHITE BLOOD COUNT 8.1 10*3/uL (4.8-10.8)
[2019-04-22 11:18] LABS: ALBUMIN 2.6 gm/dl (3.1-4.5); BILIRUBIN, DIRECT < 0.1 mg/dL (0.0-0.2); BUN 20 mg/dl (7-24); CHLORIDE 114 mmol/L (98-107); CHOLESTEROL 123 mg/dL (<200); POTASSIUM 3.9 mmol/L (3.5-5.1); SGOT/AST 11 IU/L (3-35); SGPT/ALT 10 U/L (12-78); SODIUM 142 mmol/L (136-145); TOTAL IRON BINDING CAPACITY 268 ug/dl (250-450); TOTAL PROTEIN 8.1 gm/dL (6.4-8.2); TRIGLYCERIDES 109 mg/dl (<150); VLDL CHOLESTEROL 22 mg/dL (6-40)
[2019-04-22 11:19] LABS: ALKALINE PHOSPHATASE 74 U/L (45-117); HDL CHOLESTEROL 49 mg/dl (40-60); LDL CHOLESTEROL 52 mg/dL (9-159)
== END | disposition home or self-care (01) ==
LOC: LAB 10:02
PROVIDERS: Family Medicine
DX: E78.5 Hyperlipidemia, unspecified (principal); D50.9 Iron deficiency anemia, unspecified; D64.9 Anemia, unspecified; F32.89 Other specified depressive episodes; R73.09 Other abnormal glucose

== ENCOUNTER → 2019-12-23 | Outpatient (CLI) | payer MEDICARE, OTHER ==
[2019-12-23 11:13] LABS: BASO % 0.4 % (0.0-1.0); EOS # 0.1 10*3/uL (0.0-0.4); EOS % 1.6 % (1.0-4.0); HEMATOCRIT 35.7 % (37.0-47.0); HEMOGLOBIN 10.2 g/dl (12.0-16.0); LYMPH # 0.9 10*3/uL (1.3-4.4); LYMPH % 17.1 % (27.0-41.0); MEAN CELL VOLUME 80.2 fl (81.0-99.0); MEAN CORPUSCULAR HGB 22.9 pg (27.0-31.0); MEAN CORPUSCULAR HGB CONC 28.6 g/dl (33.0-37.0); MEAN PLATELET VOLUME 9.4 fl (9.6-12.3); MONO # 0.3 10*3/uL (0.1-1.0); MONO % 6.7 % (3.0-9.0); NEUT # 3.7 10*3/uL (2.3-7.9); PLATELET COUNT AUTOMATED 262 10*3/uL (130-400); RED BLOOD COUNT 4.45 10*6/uL (4.10-5.10); RED CELL DISTRI WIDTH 18.2 % (0-14.5)
[2019-12-23 11:40] LABS: ALBUMIN 3.3 gm/dl (3.1-4.5); ALKALINE PHOSPHATASE 90 U/L (45-117); BILIRUBIN, DIRECT < 0.1 mg/dL (0.0-0.2); BUN 25 mg/dl (7-24); CHLORIDE 110 mmol/L (98-107); CHOLESTEROL 158 mg/dL (<200); CREATININE 1.21 mg/dL (0.55-1.02); HDL CHOLESTEROL 63 mg/dl (40-60); LDL CHOLESTEROL 73 mg/dL (9-159); POTASSIUM 4.1 mmol/L (3.5-5.1); SGOT/AST 9 IU/L (3-35); SGPT/ALT 10 U/L (12-78); SODIUM 141 mmol/L (136-145); THYROXINE (T4) TOTAL 8.3 ug/dl (4.8-13.9); TRIGLYCERIDES 111 mg/dl (<150); VLDL CHOLESTEROL 22 mg/dL (6-40)
[2019-12-23 13:42] LABS: VITAMIN D, 25-HYDROXY 20.2 ng/mL (30-100)
== END | disposition home or self-care (01) ==
LOC: LAB 10:35
PROVIDERS: Family Medicine
DX: I10 Essential (primary) hypertension (principal); E11.9 Type 2 diabetes mellitus without complications; E55.9 Vitamin D deficiency, unspecified

== ENCOUNTER 2020-02-16 19:35 | Emergency (ER) | payer MEDICARE, OTHER ==
[~2020-02-16] VITALS: Ht 157.4 cm; Wt 90.7 kg
[2020-02-16 20:23] LABS: BASO % 0.3 % (0.0-1.0); EOS # 0.1 10*3/uL (0.0-0.4); EOS % 1.6 % (1.0-4.0); HEMATOCRIT 28.3 % (37.0-47.0); LYMPH # 0.7 10*3/uL (1.3-4.4); MEAN CELL VOLUME 75.9 fl (81.0-99.0); MEAN CORPUSCULAR HGB 21.4 pg (27.0-31.0); MEAN CORPUSCULAR HGB CONC 28.3 g/dl (33.0-37.0); MEAN PLATELET VOLUME 8.6 fl (9.6-12.3); MONO # 0.4 10*3/uL (0.1-1.0); MONO % 5.3 % (3.0-9.0); NEUT # 6.2 10*3/uL (2.3-7.9); NEUT % 83.3 % (47.0-73.0); PLATELET COUNT AUTOMATED 321 10*3/uL (130-400); RED BLOOD COUNT 3.73 10*6/uL (4.10-5.10); WHITE BLOOD COUNT 7.4 10*3/uL (4.8-10.8)
[2020-02-16 20:39] LABS: ALBUMIN 2.7 gm/dl (3.1-4.5); CREATININE 1.37 mg/dL (0.55-1.02); POTASSIUM 4.5 mmol/L (3.5-5.1); TOTAL PROTEIN 8.7 gm/dL (6.4-8.2)
[2020-02-16] MEDS ORDERED: VIBRAMYCIN100 MG PO (20:52)
== END 2020-02-16 21:29 | disposition home or self-care (01) ==
LOC: ED 19:35
PROVIDERS: Physician Assistant
DX: S81.802A Unspecified open wound, left lower leg, initial encounter (principal); S81.801A Unspecified open wound, right lower leg, initial encounter; I10 Essential (primary) hypertension; Z79.899 Other long term (current) drug therapy; Z79.2 Long term (current) use of antibiotics; Z79.82 Long term (current) use of aspirin; Z90.710 Acquired absence of both cervix and uterus; X58.XXXA Exposure to other specified factors, initial encounter; Y93.89 Activity, other specified; Y92.89 Other specified places as the place of occurrence of the external cause; Y99.8 Other external cause status

== ENCOUNTER 2020-03-17 18:47 | Inpatient (IN) | payer MEDICARE, OTHER ==
[~2020-03-17] VITALS: Ht 152.4 cm; Wt 116.7 kg
[2020-03-17 18:52] VITALS: BP 114/55
--- NOTE | 2020-03-17 19:00 | NUR ---
[place] POA: [phone]
[2020-03-17 19:46] LABS: HEMATOCRIT 26.8 % (37.0-47.0); MEAN CELL VOLUME 72.8 fl (81.0-99.0); MEAN CORPUSCULAR HGB 20.7 pg (27.0-31.0); MEAN CORPUSCULAR HGB CONC 28.4 g/dl (33.0-37.0); MEAN PLATELET VOLUME 9.8 fl (9.6-12.3); PLATELET COUNT AUTOMATED 277 10*3/uL (130-400); RED BLOOD COUNT 3.68 10*6/uL (4.10-5.10); RED CELL DISTRI WIDTH 18.6 % (0-14.5); WHITE BLOOD COUNT 15.3 10*3/uL (4.8-10.8)
[2020-03-17 19:55] LABS: ACT PARTIAL THROMBO TIME 32.7 SECONDS (20.0-32.1)
[2020-03-17 20:01] LABS: ALKALINE PHOSPHATASE 86 U/L (45-117); BUN 47 mg/dl (7-24); CHLORIDE 103 mmol/L (98-107); CREATININE 3.78 mg/dL (0.55-1.02); LIPASE 59 U/L (73-393); POTASSIUM 4.7 mmol/L (3.5-5.1); SGOT/AST 17 IU/L (3-35); SGPT/ALT 9 U/L (12-78); SODIUM 133 mmol/L (136-145); TOTAL PROTEIN 8.5 gm/dL (6.4-8.2)
[2020-03-17 20:08] LABS: TROPONIN I < 0.015 ng/ml (<0.045)
[2020-03-17 20:16] LABS: TOTAL CELLS COUNTED 100 #CELLS
[2020-03-17 20:17] LABS: DOHLE BODIES FEW; MICROCYTOSIS SLIGHT; PLATELET SUFFICIENCY NORMAL (NORMAL)
[2020-03-18 00:03] LABS: BILIRUBIN 1+ (NEGATIVE); BLOOD NEGATIVE (NEGATIVE); CLARITY SL CLOUDY (CLEAR); COLOR YELLOW (YELLOW); GLUCOSE NEGATIVE (NEGATIVE); KETONE NEGATIVE (NEGATIVE); LEUKO ESTERASE NEGATIVE (NEGATIVE); NITRITE NEGATIVE (NEGATIVE); UROBILINOGEN 0.2 E.U./dl (0.2-1.0)
[2020-03-18 00:05] LABS: RBC 0-2 rbc/hpf (0-2)
[2020-03-18 00:06] LABS: BACTERIA 1+
[2020-03-18 00:08] VITALS: BP 117/58
[2020-03-18 01:00] VITALS: BP 146/71
--- NOTE | 2020-03-18 01:00 | NUR ---
A 80, admitted to 4E, under the services of ASHELY Alston DO with a diagnosis of CELLULITIS. Chief complaint is CELLULITIS RIGHT LEG. Patient arrived via stretcher from ER. Monitor applied. Initial assessment completed. Vital signs taken and recorded. ASHELY ALSTON DO notified of admission to the unit. Orders received. See assessment for past medical history, medications and allergies. Patient and/or family oriented to unit. [facility] visitation policy reviewed. Clothing/patient valuable form completed. KAPIL ZHU
--- NOTE | 2020-03-18 01:15 | NUR ---
ADMISSION BATH GIVEN DUE TO PATIENT'S POOR HYGIENE. URINE SENT FOR URINE DRUG SCREEN. PT. MOANING & STAFF HAVING VERY DIFFICULTY TIME TURNING PT. PT. DOES NOT WANT TO TURN. PT. STATES THAT SHE LIVES AT HOME WITH HER GRANDSON & TAKES CARE OF HERSELF.
[2020-03-18 02:03] LABS: URINE AMPHETAMINES < 1000 (1000ng/ml); URINE BARBITURATES < 200 (200ng/ml); URINE BENZODIAZEPINES < 200 (200ng/ml); URINE CANNABINOIDS (THC) < 50 (50ng/ml); URINE COCAINE < 300 (300ng/ml); URINE METHADONE < 300 (300ng/ml); URINE OPIATES < 300 (300ng/ml)
[2020-03-18 02:08] LABS: URINE PHENCYCLIDINE < 25 (25ng/ml)
--- NOTE | 2020-03-18 04:00 | NUR ---
DR. FALCON MADE AWARE THAT PATIENT DOES NOT KNOW WHAT MEDICATIONS SHE IS TAKING.
--- NOTE | 2020-03-18 05:33 | NUR ---
BLOOD SUGAR 26.
--- NOTE | 2020-03-18 05:47 | NUR ---
DEXTROSE IV GIVEN TO PATIENT. PT. ALSO HAD OJ & SUGAR, ALEX CRACKERS W/PEANUT BUTTER.
--- NOTE | 2020-03-18 05:50 | NUR ---
BLOOD SUGAR 74.
--- NOTE | 2020-03-18 05:55 | NUR ---
CALLED DR. FALCON TO INFORM HIM OF PATIENT'S BLOOD SUGAR BEING 26 AT 0533 AM & WAS RETAKEN AT 0550 & IT WAS 74. STAT REFLEX ORDERED.
--- NOTE | 2020-03-18 05:55 | NUR ---
BLOOD SUGAR 144.
--- NOTE | 2020-03-18 06:21 | NUR ---
CALLED DR. NIELSEN'S ANSWERING SERVICE & SPOKE TO ZEHRA WHO IS GOING TO GIVE CONSULT TO
--- NOTE | 2020-03-18 06:24 | NUR ---
RETURN CALL FROM DR. NIELSEN'S GROUP; SOMEONE FROM THE GROUP WILL SEE THE PATIENT TODAY.
--- NOTE | 2020-03-18 06:26 | NUR ---
PODIATRY RESIDENT CALLED & NOTIFED OF CONSULT.
[2020-03-18 06:35] LABS: HEMATOCRIT 25.5 % (37.0-47.0); MEAN CORPUSCULAR HGB 20.6 pg (27.0-31.0); MEAN CORPUSCULAR HGB CONC 28.6 g/dl (33.0-37.0); MEAN PLATELET VOLUME 10.2 fl (9.6-12.3); PLATELET COUNT AUTOMATED 284 10*3/uL (130-400); RED BLOOD COUNT 3.54 10*6/uL (4.10-5.10); RED CELL DISTRI WIDTH 18.5 % (0-14.5)
[2020-03-18 07:10] LABS: CREATININE 3.53 mg/dL (0.55-1.02); POTASSIUM 4.6 mmol/L (3.5-5.1)
[2020-03-18 07:12] LABS: POLYCHROMASIA SLIGHT; ROULEAUX SLIGHT; TOTAL CELLS COUNTED 100 #CELLS
[2020-03-18 07:13] LABS: BURR CELLS FEW; OVALOCYTES FEW; PLATELET SUFFICIENCY NORMAL (NORMAL)
[2020-03-18 07:14] LABS: MICROCYTOSIS MODERATE
[2020-03-18 08:00] VITALS: BP 130/78
--- NOTE | 2020-03-18 08:42 | NUR ---
BLOOD SUGAR 71, ORANGE JUICE GIVEN AT THIS TIME
--- NOTE | 2020-03-18 09:00 | NUR ---
Set Painter in to talk to patient. Patient states lives at home with her grandson. There are 0 steps in the home. Physician: Dr. Speedy Bernal Pharmacy: [facility] Home health services: resume [facility] Patient's level of ADLs: INDEPENDENT Patient has working utilities: yes DME: none Follow-up physician's appointment after d/c: will be made by the hospitalist nurse director upon discharge Does patient want to access PORTAL?: no Discharge plan discussed with patient. She lives at home with her grandson. She states she is independent in her ADLs and ambulation. Discussed short term SNF and she refuses. Discussed home health care services and she states she currently has [facility] and would like to resume those services upon discharge. When medically stable she will be discharged to home with the resumption of her [facility] care services. She states her grandson will provide transportation on discharge. ELVIN SCHRADER
--- NOTE | 2020-03-18 09:28 | NUR ---
CALLED DR QUEZADA TO SEE IF HE WANTS PT TO HAVE HIS HEPARIN, HE STATES TO GIVE THE HEPARIN AND WE WILL CONTINUE TO WATCH H&H AND PLT COUNT
--- NOTE | 2020-03-18 10:25 | NUR ---
DR LANZA IN TO SEE PATIENT AT THIS TIME
--- NOTE | 2020-03-18 11:29 | NUR ---
PT STATES SHE IS HAVING LEG PAIN AND RATE IT 8/10. PRN TYLENOL PO IS GIVEN AT THIS TIME ALONG WITH MILK AND PEANUT BUTTER TO HELP THE BLOOD SUGAR OF 61. LUNCH ORDERED
[2020-03-18 12:00] VITALS: BP 140/50
--- NOTE | 2020-03-18 12:15 | NUR ---
PT VERBALIZES RELIEF OF PAIN AFTER TAKING TYLENOL
--- NOTE | 2020-03-18 12:55 | NUR ---
GRANDDAUGHTER ON THE PHONE ASKING ABOUT PATIENT WELL BEING
--- NOTE | 2020-03-18 13:10 | NUR ---
CALLED DR DIANA ABOUT PATIENT HOME MEDICATIONS THAT HAVE BEEN REVIEWED BUT NOT YET CONTINUE, HE WILL TAKE A LOOK
[2020-03-18 16:00] VITALS: BP 138/46
--- NOTE | 2020-03-18 17:22 | NUR ---
PT STATES SHE IS HAVING PAIN IN HER LEFT EAR RATING IT A 10/10. PRN TYLENOL PO GIVEN AT THIS TIME. CALL LIGHT WITHIN REACH, WILL CONTINUE TO MONITOR FOR EFFECTIVE NESS
--- NOTE | 2020-03-18 17:47 | NUR ---
IN TO REASSESS PT AFTER GIVING PAIN MED AND PT IS SLEEPING, WILL CONTINUE TO MONITOR
--- NOTE | 2020-03-18 19:45 | NUR ---
BLOOD SUGAR 50.
--- NOTE | 2020-03-18 19:50 | NUR ---
GAVE PATIENT D50 & ORANGE JUICE, CRACKERS & CHEESE.
[2020-03-18 20:17] VITALS: BP 129/56
--- NOTE | 2020-03-18 20:20 | NUR ---
BLOOD SUGAR 134.
[2020-03-19] VITALS (13 sets, daily range): BP systolic 130–170; BP diastolic 49–75
--- NOTE | 2020-03-19 04:00 | NUR ---
SPOKE WITH DR. FALCON REGARDING PATIENT BEDSIDE BG CONSISTENTLY BEING LOW AND D50 GIVEN MULTIPLE TIMES SO FAR. PATIENT CURRENT BEDSIDE BG IS 59 WHILE GETTING D5 1/2 NS AT 60ML/HR. ORDERS RECEIVED TO GIVE D50 AND CHANGE FLUIDS TO D10 AT 60ML/HR.
--- NOTE | 2020-03-19 05:32 | NUR ---
PT C/O EAR PAIN/DISCOMFORT. DR. FALCON IN TO SEE PT AND EXAMINE EARS. DEBROX EAR DROPS ORDERED.
[2020-03-19 06:22] LABS: MEAN CELL VOLUME 70.8 fl (81.0-99.0); MEAN CORPUSCULAR HGB 20.9 pg (27.0-31.0); MEAN CORPUSCULAR HGB CONC 29.6 g/dl (33.0-37.0); MEAN PLATELET VOLUME 10.2 fl (9.6-12.3); PLATELET COUNT AUTOMATED 304 10*3/uL (130-400); RED BLOOD COUNT 3.39 10*6/uL (4.10-5.10); RED CELL DISTRI WIDTH 18.4 % (0-14.5); WHITE BLOOD COUNT 15.4 10*3/uL (4.8-10.8)
[2020-03-19 06:52] LABS: CREATININE 2.96 mg/dL (0.55-1.02); POTASSIUM 4.6 mmol/L (3.5-5.1)
[2020-03-19 07:04] LABS: BURR CELLS FEW; MICROCYTOSIS MODERATE; PLATELET SUFFICIENCY NORMAL (NORMAL); POLYCHROMASIA SLIGHT; ROULEAUX SLIGHT; TOTAL CELLS COUNTED 100 #CELLS
[2020-03-19 07:05] LABS: OVALOCYTES FEW
--- NOTE | 2020-03-19 09:29 | NUR ---
PT MEDICATED WITH TYLENOL FOR C/O EAR PAIN. PT RATES PAIN 5/10 WILL MONITOR
--- NOTE | 2020-03-19 10:15 | NUR ---
TYLENOL HELPED WILL MONITOR
--- NOTE | 2020-03-19 14:00 | NUR ---
BILATERAL DRESSINGS CHANGED TODAY BY DR GARBER RESIDENT
--- NOTE | 2020-03-19 16:27 | NUR ---
DR HO ANSWERING SERVICE NOTIFIED OF CONSULT
--- NOTE | 2020-03-19 16:28 | NUR ---
DR DIANA CALLED AND NOTIFIED OF BLOOD SUGAR OF 77
--- NOTE | 2020-03-19 20:00 | NUR ---
PATIENT RESTING IN BED WITH NO NEEDS MADE. C/O EAR PAIN. FLUIDS INFUSING PER ORDER. BED IN LOWEST POSITION, CALL LIGHT IN REACH
--- NOTE | 2020-03-19 22:39 | NUR ---
PATIENT RESTING IN BED WITH EYES CLOSED. EASILY AWAKENS. DENIES NEEDS. BED IN LOWEST POSITION, CALL LIGHT IN REACH
[2020-03-20] VITALS: BP 154/64
--- NOTE | 2020-03-20 03:33 | NUR ---
PATIENT RESTING IN BED WITH NO S/S OF DISTRESS. BED IN LOWEST POSITION, CALL LIGHT IN REACH
--- NOTE | 2020-03-20 06:42 | NUR ---
BENJAMIN WATSON [id number] Please refer to the physician's history and physical for past medical history, comorbid conditions, and allergies. Diagnosis: CELLULITIS OF RIGHT LEG,ANEMIA,SEVERE SEPSIS, Arnoldo Score: 12,HIGH RISK WOUND DESCRIPTIONS: This nurse as well as Kasey Short RN assessed patient Wound Number: 1,2,3 and 4 Location of the wound: right outer calf Thickness: Full Size: 17.5cm x 7.4cm x 0.2cm Tunneling: none Undermining: none Sinus Tract: none Presence of Exudate: Serosanguineous Amount: Light Color: Red, yellow, brown Odor: None Periwound Skin Appearance: Normal Wound edges: approximated Pain (associated with wound): tender at time of assessment How does patient state this happened? pt stated this started quite awhile ago pt states she follow with the Doctors out on Wound Number: 5 Location of the wound: right medial calf Thickness: Full Size: 1.8cm x 1.5cm x 0.1cm Tunneling: none Undermining: none Sinus Tract: none Presence of Exudate: Serousanguineous Amount: Light Color: yellow Odor: None Periwound Skin Appearance: Normal Wound edges: approximated Pain (associated with wound): tender at time of assessment How does patient state this happened? pt stated this started quite awhile ago pt states she follow with the Doctors out on Wound Number: 6 Location of the wound: right medial ankle (inner right calf) Thickness: Full Size: 1.5cm x 1.0cm x 0.1cm Tunneling: none Undermining: none Sinus Tract: none Presence of Exudate: Serosanguineous Amount: Light Color: Red Odor: None Periwound Skin Appearance: Normal Wound edges: approximated Pain (associated with wound): tender at time of assessment How does patient state this happened? pt stated this started quite awhile ago pt states she follow with the Doctors out on Wound Number: 7 Location of the wound: left posterior calf (left outer calf) Thickness: Full Size: 3.4cm x 2.7cm x 0.1cm Tunneling: none Undermining: none Sinus Tract: none Presence of Exudate: Serosanguineous Amount: Light Color: yellow, brown Odor: None Periwound Skin Appearance: Normal Wound edges: approximated Pain (associated with wound): tender at time of assessment How does patient state this happened? pt stated this started quite awhile ago pt states she follow with the Doctors out on Wound Number: 8 Location of the wound: left lateral calf (left outer calf) Thickness: Full Size: 1.4cm x 0.6cm x <0.1cm Tunneling: none Undermining: none Sinus Tract: none Presence of Exudate: Serousanguineous Amount: Light Color: yellow, brown Odor: None Periwound Skin Appearance: Normal Wound edges: approximated Pain (associated with wound): tender at time of assessment How does patient state this happened? pt stated this started quite awhile ago pt states she follow with the Doctors out on Wound Number: 9 Location of the wound: coccyx Type of wound: stage 2 Thickness: Partial Size: 0.6cm x 0.2cm x 0.1cm Tunneling: none Undermining: none Sinus Tract: none Presence of Exudate:none Amount: none Color: Red Odor: None Periwound Skin Appearance: Normal Wound edges: approximated Pain (associated with wound): tender at time of assessment How does patient state this happened? pt unsure how this happened Surface the patient is resting on: Isoflex SKIN PREVENTION RECOMMENDATION: 1. Pressure redistribution support surface as appropriate 2. Elevate heels 3. Remove boots/TEDS every shift and reapply 4. Head of bed 30 degrees as tolerated 5. Assess nutrition and hydration 6. Manage moisture 7. Avoid the use of containment devices while in bed 8. Use absorptive products on surfaces limit layers of linens on bed 9. Turn and reposition every 1-2 hours in bed and every 1 hour in chair as tolerated 10. Weight shifts every 15 minutes while up in chair 11. Offloading with pillows or device to keep heels elevated off bed 12. Monitor skin at least every shift 13. Inspect under medical devices twice a day WOUND TREATMENT RECOMMENDATIONS: Podiatry is already on consult. Heel raiser pro to boots to bilateral feet while in bed Wheelchair cushion when oob Continue dressing change orders to bilateral lower extremities per podiatry d/c full thickness guidelines Stage 2 guidelines: Cleanse coccyx with nss and apply sureprep around the wound hydrogel to wound bed and cover with optifoam gentle daily and prn for soiling.
[2020-03-20 06:53] LABS: BASO % 0.2 % (0.0-1.0); EOS # 0.1 10*3/uL (0.0-0.4); EOS % 0.3 % (1.0-4.0); HEMATOCRIT 25.4 % (37.0-47.0); LYMPH # 0.8 10*3/uL (1.3-4.4); LYMPH % 4.6 % (27.0-41.0); MEAN CELL VOLUME 71.3 fl (81.0-99.0); MEAN CORPUSCULAR HGB 21.6 pg (27.0-31.0); MEAN CORPUSCULAR HGB CONC 30.3 g/dl (33.0-37.0); MEAN PLATELET VOLUME 9.9 fl (9.6-12.3); MONO # 0.7 10*3/uL (0.1-1.0); MONO % 3.6 % (3.0-9.0); NEUT # 16.6 10*3/uL (2.3-7.9); NEUT % 89.7 % (47.0-73.0); PLATELET COUNT AUTOMATED 341 10*3/uL (130-400); RED BLOOD COUNT 3.56 10*6/uL (4.10-5.10); RED CELL DISTRI WIDTH 18.7 % (0-14.5); WHITE BLOOD COUNT 18.5 10*3/uL (4.8-10.8)
[2020-03-20 07:16] LABS: CREATININE 2.09 mg/dL (0.55-1.02); POTASSIUM 4.3 mmol/L (3.5-5.1)
--- NOTE | 2020-03-20 07:23 | NUR ---
Notified hospitalist nurse director of resumption of [facility]
--- NOTE | 2020-03-20 07:58 | NUR ---
Nursing screen completed and chart reveiwed.Occupational Therapy referral received. Thank you for this referral. Maria T Srivastava OTR/l
--- NOTE | 2020-03-20 08:05 | NUR ---
PHYSICAL THERAPY Screen and PT eval received will follow thank you Reba Anderson PT
--- NOTE | 2020-03-20 08:45 | NUR ---
PHYSICAL THERAPY Physical therapy evaluation attempted. Pateint reporting, "My leg is killing me right now. They removed the bandage and now everytime I move, the covers hurt my leg." Patient's LE unwrapped at this time, awaiting doppler imaging. Will return at a later time for PT evaluation. Thank you. Alicia Calabrese,PT,DPT
--- NOTE | 2020-03-20 08:54 | NUR ---
Patient approached for Occupational Therapy evaluation. Patient was crying out loud d/t pain in right lower extremity. She reports that her RUE does not hurt when it is wrapped. Nursing reports that patient is to go for arterial studies and her LEs need to be not-wrapped for the test. NEWSPAPER DELIVERY COUNSELOR reports that yes, she wants patient out of bed after her LEs are wrapped. Podiatry will wrap LEs after testing. OTR to recheck at a later time/date. Thank you. Maria T Srivastava OTR/L
--- NOTE | 2020-03-20 09:04 | NUR ---
PT IN BED, AWAKE, ALERT AND ORIENTED. PT MOANING IN PAIN. STATES BILATERAL LEGS HURT. RATED AT A 8. PRN TYLENOL ADMINISTERED. WILL MONITOR FOR EFFECTIVENESS.
--- NOTE | 2020-03-20 09:45 | NUR ---
JASON NOTIFIED OF PT'S PAIN LEVEL. AWAITING ORDERS.
--- NOTE | 2020-03-20 09:47 | NUR ---
Tracie MENDOSA notified of wound care recommendations
--- NOTE | 2020-03-20 10:04 | NUR ---
PT STILL MOANING IN PAIN. TYLENOL NOT EFFECTIVE.
--- NOTE | 2020-03-20 10:08 | NUR ---
PRN NORCO ADMINISTERED FOR PAIN TO BILATERAL LEGS. PT MOANING AND CRYING IN PAIN. WILL MONITOR FOR EFFECTIVENESS.
--- NOTE | 2020-03-20 10:57 | NUR ---
PHYSICAL THERAPY PT evaluation attempted. Patient resting in bed at this time, comfortable. Patient refusing skilled PT evaluation at this time, stating, "Not right now." Patient requesting that therapy try again tomorrow. Will return at a later date to complete PT evaluation. Thank you. Alicia Calabrese,PT,DPT
--- NOTE | 2020-03-20 11:00 | NUR ---
Occupational Therapy attempted this date after arterial studies and BLEs are wrapped. Patient reports that she did not want to participate in therapy today. Nursing reports that she has had alot of pain today. OTR will attempt at a later date. Maria T Srivastava OTR/clifford
--- NOTE | 2020-03-20 11:08 | NUR ---
PT LAYING IN BED ASLEEP. NO S/S OF DISTRESS. NORCO CONSIDERED EFFECTIVE.
[2020-03-20 12:00] VITALS: BP 141/46
[2020-03-20 16:00] VITALS: BP 137/63
--- NOTE | 2020-03-20 19:25 | NUR ---
PATIENT RESTING IN BED WITH NO NEEDS MADE. BED IN LOWEST POSITION, CALL LIGHT IN REACH
[2020-03-20 20:00] VITALS: BP 136/51
[2020-03-21] VITALS: BP 147/60
--- NOTE | 2020-03-21 01:15 | NUR ---
24 HR chart check completed.
[2020-03-21 06:39] LABS: HEMATOCRIT 26.4 % (37.0-47.0); MEAN CELL VOLUME 72.9 fl (81.0-99.0); MEAN CORPUSCULAR HGB 21.3 pg (27.0-31.0); MEAN CORPUSCULAR HGB CONC 29.2 g/dl (33.0-37.0); MEAN PLATELET VOLUME 9.8 fl (9.6-12.3); PLATELET COUNT AUTOMATED 318 10*3/uL (130-400); RED BLOOD COUNT 3.62 10*6/uL (4.10-5.10); RED CELL DISTRI WIDTH 19.3 % (0-14.5); WHITE BLOOD COUNT 16.5 10*3/uL (4.8-10.8)
[2020-03-21 06:50] LABS: ALBUMIN 1.5 gm/dl (3.1-4.5); POTASSIUM 4.4 mmol/L (3.5-5.1); TOTAL PROTEIN 7.1 gm/dL (6.4-8.2)
[2020-03-21 06:54] LABS: CREATININE 1.64 mg/dL (0.55-1.02)
[2020-03-21 07:26] LABS: MICROCYTOSIS SLIGHT; PLASMA CELL 1 % (0-0); PLATELET SUFFICIENCY NORMAL (NORMAL); ROULEAUX MODERATE; TOTAL CELLS COUNTED 100 #CELLS
--- NOTE | 2020-03-21 09:00 | NUR ---
case management visits with patient, discussed with her a discharge plan including a short term fdc, educated her that she would receive 24 hour care, physical therapy, iv care and wound care in the facility as opposed to [facility] 3 days a week. also educated her that if she needed home iv antibiotics her insurance would not pay for it to be given at home. she was agreeable and chose [facility], referral will be sent to [facility], will wait for acceptance. no precert require to go to [facility] due to patient's insurance being medicare, case management will follow
--- NOTE | 2020-03-21 09:07 | NUR ---
PT COMPLAINS OF LEG/KNEE PAIN RATED AT A 7. PRN NORCO ADMINISTERED AT THIS TIME. WILL MONITOR FOR EFFECTIVENESS.
--- NOTE | 2020-03-21 09:07 | NUR ---
ANN MARIE faxed new patient referral to [facility] on this date. Pending negative rapid covid and PT/OT evals before patient can be considered for placement.
--- NOTE | 2020-03-21 10:07 | NUR ---
PT RESTING IN BED. STATES SOME RELIEF FROM KNEE/LEG PAIN. PRN NORCO CONSIDERED EFFECTIVE.
--- NOTE | 2020-03-21 11:17 | NUR ---
PHYSICAL THERAPY Physical Therapy evaluation completed on 4E with full evaluation to follow. High complexity PT evaluation per chart review and evaluation, [id number]. Recommend physical therapy per plan of care and SNF upon discharge. Thank you for this referral. Alicia Calabrese,PT,DPT
[2020-03-21 12:00] VITALS: BP 148/59
--- NOTE | 2020-03-21 12:19 | NUR ---
ANN MARIE got word that patient has been accepted at [facility] as long as the "IV will be discharged before going to the facility".
--- NOTE | 2020-03-21 12:34 | NUR ---
IN TO ROOM. AIDES AND PT WERE HELPING WITH AMBULATION AND EXERCISES. PT HAD MULTIPLE BOWEL MOVEMENTS. BED AND PT CLEANED UP. NEW OPTIFOAM APPLIED TO GLUTEAL CLEFT. PT REPOSITIONED IN BED. NO STATED COMPLAINTS AT THIS TIME. DENIES PAIN AT REST. BED IN LOWEST LOCKED POSITION AND CALL LIGHT WITHIN REACH. WILL CONTINUE TO MONITOR.
--- NOTE | 2020-03-21 14:19 | NUR ---
ANN MARIE faxed PT/OT to [facility] on this date. Still pending Covid 19 rapid negative.
--- NOTE | 2020-03-21 15:36 | NUR ---
IN TO ROOM WITH PODIATRY. ASSISTED IN DRESSING PT'S LEGS. PT MOANING IN PAIN. PRN NORCO ADMINISTERED AT THIS TIME.
[2020-03-21 16:00] VITALS: BP 143/55
--- NOTE | 2020-03-21 16:36 | NUR ---
PT ASLEEP. PRN NORCO CONSIDERED EFFECTIVE.
[2020-03-21 20:00] VITALS: BP 137/50
--- NOTE | 2020-03-21 21:19 | NUR ---
PATIENT BS 88. GIVEN PRN GLUCOSE TAB. WILL CONTINUE TO MONITOR.
[2020-03-22] VITALS: BP 136/51
[2020-03-22 06:20] LABS: HEMATOCRIT 25.8 % (37.0-47.0); MEAN CELL VOLUME 72.7 fl (81.0-99.0); MEAN CORPUSCULAR HGB 21.7 pg (27.0-31.0); MEAN CORPUSCULAR HGB CONC 29.8 g/dl (33.0-37.0); MEAN PLATELET VOLUME 9.4 fl (9.6-12.3); PLATELET COUNT AUTOMATED 380 10*3/uL (130-400); RED BLOOD COUNT 3.55 10*6/uL (4.10-5.10); RED CELL DISTRI WIDTH 19.4 % (0-14.5); WHITE BLOOD COUNT 16.9 10*3/uL (4.8-10.8)
[2020-03-22 06:52] LABS: ALBUMIN 1.5 gm/dl (3.1-4.5); CREATININE 1.36 mg/dL (0.55-1.02); POTASSIUM 4.7 mmol/L (3.5-5.1)
[2020-03-22 06:57] LABS: TOTAL CELLS COUNTED 100 #CELLS
[2020-03-22 07:02] LABS: OVALOCYTES FEW; POLYCHROMASIA SLIGHT
[2020-03-22 07:03] LABS: PLATELET SUFFICIENCY NORMAL (NORMAL)
[2020-03-22 08:00] VITALS: BP 155/60
--- NOTE | 2020-03-22 08:45 | NUR ---
PHYSICAL THERAPY Patient seen this am 1;1 for therapy visit and was resting supine in bed upon therapist arrival. Patient identified by name / and presented with IV treatemnt. Patient also voices 9/10 L knee pain and was joined by OT records management assistant for [facility] only this session. Patient transfers supine to sit EOB with MAX A x 2, tolerating 2-3 minutes static EOB sit, SBA. Patient completed several sit to stand transfers with bed elevated slightly, MAX A x 2, use of wh walker standing support, demonstrating very slow rise, Poor hand placement and only tolerating approx 30 seconds static stand each trial. Patient unable to attempt SPT to bedside chair secondary to severe L knee pain during standing activities, as patient returned to supine in bed MAX A x 2. Patient remained in bed with call light, tray table, telephone and bed alarm for safety. Will continue per POC as tolerated, total treatment time 14 minutes. Rancho Grayson, PAPER BOX MAKER
--- NOTE | 2020-03-22 09:00 | NUR ---
OT NOTE Pt was seen this A.M. 1:1 for 20 minute OT session. Upon arrival pt was supine in bed. Pt identified by name and and had complaints of 9/10 L knee pain at rest and with activity. Pt transferred supine to sit EOB with maxA X 2. While sitting EOB challenged pt's dynamic sitting balance for increased I and enhanced safety. While weight shifting, crossing midline, and reaching over all planes pt was able to maintain F+ sitting balance. Pt then completed multiple sit to stand transfers from bed level with maxA X 2 and use of w/w for UE support. Pt required constant verbal prompts for proper hand placement, correcting her posture, and relaxation techniques. Challenged pt's static standing tolerance needed for increased I in self care tasks and functional transfers, pt was able to tolerate aprox 20-30 seconds at a time before sitting due to fatigue and pain in her L knee. Pt then transferred back into bed sit to supine with maxA X 2. There she was left with call light in hand, tray table in place, and bed alarm activated for safety. Continue with rec D/C plan to SNF. RACHID Sewell/Aidee
--- NOTE | 2020-03-22 09:16 | NUR ---
PATIENT MEDICATED WITH NORCO FOR C/O PAIN IN THE BILATERAL LEGS R/T DRESSING CHANGES BEING DONE BY PODIATRY. PODIATRY RESIDENT HAS UNWRAPPED LEGS AND WILL NOW ALLOW SOME TIME FOR MEDICATION TO BEGIN TO WORK. RN WILL CONTINUE TO MONITOR
--- NOTE | 2020-03-22 09:50 | NUR ---
PODISTRY FINISHED WITH DRESSING CHANGES AT THIS TIME, PATIENT STILL YELLING OUT IN PAIN, PATIENT C/O PAIN TO BACK/KNEES/ANKLES. RN INSTRUCTED PATIENT TO ALLOW SOME MORE TIME FOR PAIN MEDICATION TO WORK
--- NOTE | 2020-03-22 10:08 | NUR ---
RAPID COVID-19 TEST ATTEMPTED AT THIS TIME, TEST DID NOT YIELD CONTROL LINE, ANOTHER TEST WILL BE PERFORMED. DIXON HUTTON WITNESSED THIS MISTAKE.
--- NOTE | 2020-03-22 10:11 | NUR ---
COVID-19 RAPID TEST PERFORMMED AT THIS TIME, PATIENT TOLERATED WELL. AWAITING RESULT IN 10 MINUTES
--- NOTE | 2020-03-22 10:16 | NUR ---
PATIENT STATES MEDICATION HAS HELPED EASE HER PAIN, WILL MONITOR
--- NOTE | 2020-03-22 10:21 | NUR ---
RAPID COVID-19 TEST RESULT WAS NEGATIVE
--- NOTE | 2020-03-22 10:23 | NUR ---
JASON LILLY MADE AWAR OF NEGATIVE RAPID COVID-19 RESULT
--- NOTE | 2020-03-22 10:25 | NUR ---
CASE MANAGEMENT MADE AWARE THAT PATIENT HAS HAD THE COVID-19 TEST AND RESULT WAS NEGATIVE
--- NOTE | 2020-03-22 10:36 | NUR ---
Clinical updates faxed to [facility] on this date. Once medically stable can be discharged.
--- NOTE | 2020-03-22 11:28 | NUR ---
JASON LILLY CALLED REGARDING PATIENTS CONTINUED PAIN, ORDERS RECIEVED
--- NOTE | 2020-03-22 11:30 | NUR ---
SPOKE WITH PODIATRY WHO STATES ITS OKAY TO LOOSEN THE DRESSING AROUND THE FOOT D/T PATIENT PAIN
[2020-03-22 12:00] VITALS: BP 136/53
--- NOTE | 2020-03-22 13:52 | NUR ---
case management [facility] when [facility] was [facility] home, educated Jayda that patient will be transferring to [facility] upon discharge for rehab prior to returning home, Jayda stated she would follow up with [facility] when patient discharges from there
[2020-03-22 16:00] VITALS: BP 133/56
--- NOTE | 2020-03-22 18:33 | NUR ---
Patient resting quietly with no c/o discomfort. Respirations easy and regular. Vital signs stable. No overt distress. FREDY CAGLE
[2020-03-22 20:00] VITALS: BP 122/51
--- NOTE | 2020-03-22 20:19 | NUR ---
PATIENT MEDICATED WITH NORCO PER PRN ORDER FOR C/O PAIN. SEE EMAR . REINFORCED USE OF CALL LIGHT.
--- NOTE | 2020-03-22 21:00 | NUR ---
PATIENT RESTING QUIETLY. NO FURTHER C/O VOICED
[2020-03-23] VITALS: BP 138/66
[2020-03-23 08:00] VITALS: BP 151/59
--- NOTE | 2020-03-23 08:25 | NUR ---
PHYSICAL THERAPY Patient seen this am 1;1 for therapy visit and was supine in bed upon therapist arrival. Patient identified by name / and reports 8/10 R LE pain while presenting with B LE foot wraps. OT registered nurse first assistant was also present for observation only this session as patient transfers supine to sit EOB with MAX A x 2. Patient tolerated static EOB sit x 7-8 minutes, SBA, requiring v/c to maintain good upright seated posture. Patient became very emotional, voicing increased self doubt when asked to perform sit to stand transfer and needed MAX encouragement to attempt transfer. Patient performed sit to stand transfer, MAX A x 2, use of wh walker standing support, demonstrating "slouched" standing posture and tolerated approx 1 minute static stand with no change in R LE pain c/o. After seated rest break, patient completed second sit to stand transfer, MAX A x 2, tolerating approx 25 seconds static stand, this trial with increased quick onset of fatigue. Patient returned to supine in bed and remained with call light, tray table, telephone and bed alarm as breakfast arrived. Will continue per POC as tolerated, total treatment time 15 minutes. Rancho Grayson, INDUSTRIAL EDITOR
--- NOTE | 2020-03-23 08:40 | NUR ---
OT NOTE Pt was seen this A.M. 1:1 for 25 minute OT session. Upon arrival pt was supine in bed. Pt identified by name and and had complaints of 8/10 R leg pain and 4/10 L knee pain. Pt transferred supine to sit EOB with maxA X 2. While sitting EOB challenged pt's dynamic sitting balance while weight shifting, crossing midline, and reaching over all planes. Pt was able to maintain F+/G- sitting balance throughout. She then completed multiple sit to stand transfers from an elevated bed level with maxA X 2 and use of w/w for UE support. Challenged pt's static standing tolerance needed for increased I in self care tasks and functional transfers, pt was able to tolerate aprox 60 seconds and then 30 seconds before sitting due to fatigue and pain. Throughout all standing tasks pt required max verbal prompts for encouragement and relaxation. Pt transferred back into bed sit to supine with maxA X 2. There she was left with call light in hand, tray table in place, and bed alarm activated for safety. Continue with rec D/C plan to SNF. RACHID Sewell/Aidee
--- NOTE | 2020-03-23 08:59 | NUR ---
ANN MARIE faxed clinical updates to [facility] on this date. Once medically stable patient can be discharged to [facility].
--- NOTE | 2020-03-23 09:00 | NUR ---
case management visits with patient, she will be transferred to [facility] for short term skilled care when medically stable, case management will follow
--- NOTE | 2020-03-23 09:34 | NUR ---
PT MEDICATED WT NORCO FOR C/O BLE PAIN. PT RATES PAIN 06/12 WILL MONITOR
--- NOTE | 2020-03-23 10:00 | NUR ---
NORCO HELPED PER PT WILL MONITOR
[2020-03-23 12:00] VITALS: BP 153/65
--- NOTE | 2020-03-23 13:00 | NUR ---
STOKES CATHETER REMOVED ORDERED
--- NOTE | 2020-03-23 13:56 | NUR ---
PT INCONTINENT OF URINE
[2020-03-23] MEDS ORDERED: CLOTRIMAZOLE TR10 MG PO (14:39)
[2020-03-23] MEDS ORDERED: HYDROCODONE-AC1 EAC1 PO (14:39)
[2020-03-23] MEDS ORDERED: AMLODIPINE BESYL5 MG PO (14:39)
[2020-03-23] MEDS ORDERED: LEVOFLOXACIN500 MG PO (14:39)
[2020-03-23] MEDS ORDERED: AMOXICILLIN500 M2 PO (14:39)
--- NOTE | 2020-03-23 14:48 | NUR ---
Hospital Exemption Completed online In [place]. Copy placed in patient chart.
--- NOTE | 2020-03-23 15:00 | NUR ---
PT REFUSED DC WOUND PHOTOS . PT BILATERAL LEG DRESSINGS CHANGED TODAY BY DR FRANCISCO . PT CRYING THE WHOLE TIME WHILE BEING CHANGED
--- NOTE | 2020-03-23 15:14 | NUR ---
Patient is discharged at this time to [facility] via [facility]. Dc information faxed, [place], Nursing/kitchen stewardess notified. Family in [facility] notified by phone with no quesitons or concerns.
--- NOTE | 2020-03-23 16:03 | NUR ---
REPORT CALLED TO NATHAN AT [facility]
--- NOTE | 2020-03-23 16:29 | NUR ---
Discharge instructions reviewed with patient/family. Patient receptive and verbalizes understanding. Follow-up care arranged. Written instructions given to patient/family. ANUSHA THRASHER
--- NOTE | 2020-03-24 07:47 | NUR ---
OCCUPATIONAL THERAPY CO-SIGN I approve of the Occupational Therapy notes written above. SERGIO CHIRINOS, OTR/L
--- NOTE | 2020-03-24 07:58 | NUR ---
PHYSICAL THERAPY CO-SIGN I approve of the Physical Therapy notes written above. Reba Anderson PT
== END 2020-03-23 16:29 | disposition other institution (70) | DRG 871 ==
LOC: ED 18:47 → EDHOLD 21:46 → 4E 21:46
PROVIDERS: Internal Medicine; Nurse Practitioner Family; Registered Nurse; Student in an Organized Health Care Education/Training Program; ADMIT Emergency Medicine
PROC: 30233N1 Transfusion of Nonautologous Red Blood Cells into Peripheral Vein, Percutaneous Approach (ICD-10-PCS; principal; 2020-03-19)
DX: A40.1 Sepsis due to streptococcus, group B (principal); G93.41 Metabolic encephalopathy; E43 Unspecified severe protein-calorie malnutrition; N17.9 Acute kidney failure, unspecified; E87.1 Hypo-osmolality and hyponatremia; I13.0 Hypertensive heart and chronic kidney disease with heart failure and stage 1 through stage 4 chronic kidney disease, or unspecified chronic kidney disease; I50.32 Chronic diastolic (congestive) heart failure; B37.0 Candidal stomatitis; Z68.42 Body mass index [BMI] 45.0-49.9, adult; L03.116 Cellulitis of left lower limb; L03.115 Cellulitis of right lower limb; R65.20 Severe sepsis without septic shock; E11.65 Type 2 diabetes mellitus with hyperglycemia; E11.22 Type 2 diabetes mellitus with diabetic chronic kidney disease; N18.3 Chronic kidney disease, stage 3 (moderate); E83.41 Hypermagnesemia; E66.01 Morbid (severe) obesity due to excess calories; D50.9 Iron deficiency anemia, unspecified; E11.51 Type 2 diabetes mellitus with diabetic peripheral angiopathy without gangrene; I87.8 Other specified disorders of veins; B96.4 Proteus (mirabilis) (morganii) as the cause of diseases classified elsewhere; B96.89 Other specified bacterial agents as the cause of diseases classified elsewhere; S81.801A Unspecified open wound, right lower leg, initial encounter; X58.XXXA Exposure to other specified factors, initial encounter; Y93.89 Activity, other specified; Y92.89 Other specified places as the place of occurrence of the external cause; Y99.8 Other external cause status; Z85.038 Personal history of other malignant neoplasm of large intestine; Z92.21 Personal history of antineoplastic chemotherapy; Z96.651 Presence of right artificial knee joint; Z98.49 Cataract extraction status, unspecified eye; Z96.1 Presence of intraocular lens; Z87.891 Personal history of nicotine dependence; Z82.49 Family history of ischemic heart disease and other diseases of the circulatory system; Z79.899 Other long term (current) drug therapy; Z79.82 Long term (current) use of aspirin; Z79.84 Long term (current) use of oral hypoglycemic drugs

== ENCOUNTER → 2020-04-19 | Outpatient (CLI) | payer MEDICARE, OTHER ==
[2020-04-19] VITALS (12 sets, daily range): BP systolic 140–175; BP diastolic 55–90
[~2020-04-19] MED LIST changes: +AMLODIPINE BESYL5 MG PO; +AMOXICILLIN500 M2 PO; +CLOTRIMAZOLE TR10 MG PO; +LEVOFLOXACIN500 MG PO
--- NOTE | 2020-04-19 10:30 | NUR ---
WATCHING TV. VSS. NO DISTRESS. RESTING QUIETLY. AMOL SCOTTRN
== END | disposition home or self-care (01) ==
LOC: TRNFUSION 01:21
DX: D50.9 Iron deficiency anemia, unspecified (principal); I10 Essential (primary) hypertension; E11.9 Type 2 diabetes mellitus without complications

== ENCOUNTER 2020-07-06 16:15 | Emergency (ER) | payer MEDICARE, OTHER ==
[~2020-07-06] VITALS: Ht 152.4 cm; Wt 102.1 kg
[2020-07-06 18:03] LABS: BILIRUBIN 1+; BLOOD 2+ (NEGATIVE); CLARITY TURBID (CLEAR); COLOR RED (YELLOW); GLUCOSE NEGATIVE; KETONE NEGATIVE; LEUKO ESTERASE 3+ (NEGATIVE); NITRITE POSITIVE (NEGATIVE); UROBILINOGEN 0.2 E.U./dl (0.0-1.0)
[2020-07-06 18:10] LABS: RBC TNTC rbc/hpf (0-2); WBC TNTC wbc/hpf (0-5)
[2020-07-06] MEDS ORDERED: PYRIDIUM200 M1 PO (18:31)
[2020-07-06] MEDS ORDERED: CIPRO500 MG PO (18:31)
== END 2020-07-06 21:01 | disposition home or self-care (01) ==
LOC: ED 16:15
PROVIDERS: Emergency Medicine
DX: N39.0 Urinary tract infection, site not specified (principal); Z79.899 Other long term (current) drug therapy; Z87.891 Personal history of nicotine dependence

== ENCOUNTER 2021-05-09 13:06 | Inpatient (IN) | payer MEDICARE, OTHER ==
[~2021-05-09] VITALS: Ht 162.5 cm; Wt 130.6 kg
[~2021-05-09 13:06] MED LIST changes: +CIPRO500 MG PO; +PYRIDIUM200 M1 PO
[2021-05-09 13:09] VITALS: BP 171/64
[2021-05-09 14:23] LABS: BASO % 0.3 % (0.0-1.0); EOS # 0.3 10*3/uL (0.0-0.4); EOS % 4.9 % (1.0-4.0); LYMPH # 0.8 10*3/uL (1.3-4.4); LYMPH % 12.9 % (27.0-41.0); MEAN CELL VOLUME 76.9 fl (81.0-99.0); MEAN CORPUSCULAR HGB 22.1 pg (27.0-31.0); MEAN CORPUSCULAR HGB CONC 28.8 g/dl (33.0-37.0); MEAN PLATELET VOLUME 9.3 fl (9.6-12.3); MONO # 0.3 10*3/uL (0.1-1.0); MONO % 4.9 % (3.0-9.0); NEUT # 4.8 10*3/uL (2.3-7.9); NEUT % 76.5 % (47.0-73.0); PLATELET COUNT AUTOMATED 363 10*3/uL (130-400); RED BLOOD COUNT 4.16 10*6/uL (4.10-5.10); RED CELL DISTRI WIDTH 17.9 % (0-14.5); WHITE BLOOD COUNT 6.3 10*3/uL (4.8-10.8)
[2021-05-09 14:41] LABS: ALBUMIN 2.4 gm/dl (3.1-4.5); ALKALINE PHOSPHATASE 81 U/L (45-117); BUN 18 mg/dl (7-24); CHLORIDE 113 mmol/L (98-107); CPK 28 U/L (26-192); CREATININE 0.92 mg/dL (0.55-1.02); LIPASE 77 U/L (73-393); POTASSIUM 3.9 mmol/L (3.5-5.1); SGOT/AST 6 IU/L (3-35); SGPT/ALT 9 U/L (12-78); SODIUM 140 mmol/L (136-145); TOTAL PROTEIN 7.6 gm/dL (6.4-8.2)
[2021-05-09 14:42] LABS: CKMB < 1.0 ng/ml (0.5-3.6)
[2021-05-09 14:49] LABS: TROPONIN I < 0.015 ng/ml (<0.045)
[2021-05-09 15:04] LABS: BILIRUBIN Negative (Negative); BLOOD Negative (Negative); CLARITY Clear (Clear); COLOR Yellow (Yellow); GLUCOSE Negative (Negative); KETONE Negative (Negative); LEUKO ESTERASE Negative (Negative); NITRITE Negative (Negative); PH 5.5 (4.5-8.0); SPECIFIC GRAVITY 1.015 (1.001-1.030)
[2021-05-09 15:25] LABS: WBC 0-2 wbc/hpf (0-5)
[2021-05-09 15:26] LABS: BACTERIA TRACE
[2021-05-09 18:39] VITALS: BP 163/72
[2021-05-09 20:00] VITALS: BP 165/60
[2021-05-10] VITALS: BP 173/62
[2021-05-10 06:05] LABS: ALBUMIN 2.3 gm/dl (3.1-4.5); BUN 15 mg/dl (7-24); CHLORIDE 113 mmol/L (98-107); CREATININE 0.79 mg/dL (0.55-1.02); POTASSIUM 3.8 mmol/L (3.5-5.1); SGOT/AST 8 IU/L (3-35); SODIUM 141 mmol/L (136-145)
[2021-05-10 06:12] LABS: ALKALINE PHOSPHATASE 77 U/L (45-117); FREE T4 1.18 ng/dl (0.76-1.46); SGPT/ALT 8 U/L (12-78); TOTAL PROTEIN 7.2 gm/dL (6.4-8.2)
[2021-05-10 06:30] LABS: BASO % 0.5 % (0.0-1.0); EOS # 0.3 10*3/uL (0.0-0.4); EOS % 4.5 % (1.0-4.0); HEMATOCRIT 30.9 % (37.0-47.0); LYMPH # 0.8 10*3/uL (1.3-4.4); LYMPH % 12.5 % (27.0-41.0); MEAN CELL VOLUME 75.7 fl (81.0-99.0); MEAN CORPUSCULAR HGB 22.1 pg (27.0-31.0); MEAN CORPUSCULAR HGB CONC 29.1 g/dl (33.0-37.0); MEAN PLATELET VOLUME 9.1 fl (9.6-12.3); MONO # 0.2 10*3/uL (0.1-1.0); MONO % 3.4 % (3.0-9.0); NEUT # 5.1 10*3/uL (2.3-7.9); NEUT % 78.8 % (47.0-73.0); PLATELET COUNT AUTOMATED 376 10*3/uL (130-400); RED BLOOD COUNT 4.08 10*6/uL (4.10-5.10); RED CELL DISTRI WIDTH 17.6 % (0-14.5); WHITE BLOOD COUNT 6.4 10*3/uL (4.8-10.8)
[2021-05-10 08:00] VITALS: BP 149/50
[2021-05-10 16:00] VITALS: BP 154/57
[2021-05-10 20:00] VITALS: BP 149/60
[2021-05-11] VITALS: BP 133/65
[2021-05-11 06:43] LABS: BASO % 0.3 % (0.0-1.0); EOS # 0.2 10*3/uL (0.0-0.4); EOS % 3.2 % (1.0-4.0); HEMATOCRIT 31.4 % (37.0-47.0); LYMPH # 0.8 10*3/uL (1.3-4.4); LYMPH % 11.8 % (27.0-41.0); MEAN CORPUSCULAR HGB 22.1 pg (27.0-31.0); MEAN CORPUSCULAR HGB CONC 28.7 g/dl (33.0-37.0); MEAN PLATELET VOLUME 9.3 fl (9.6-12.3); MONO # 0.3 10*3/uL (0.1-1.0); MONO % 3.9 % (3.0-9.0); NEUT # 5.3 10*3/uL (2.3-7.9); NEUT % 80.2 % (47.0-73.0); PLATELET COUNT AUTOMATED 395 10*3/uL (130-400); RED BLOOD COUNT 4.08 10*6/uL (4.10-5.10); RED CELL DISTRI WIDTH 17.7 % (0-14.5); WHITE BLOOD COUNT 6.6 10*3/uL (4.8-10.8)
[2021-05-11 06:48] LABS: CHLORIDE 113 mmol/L (98-107); POTASSIUM 4.2 mmol/L (3.5-5.1); SODIUM 142 mmol/L (136-145)
[2021-05-11 06:54] LABS: BUN 17 mg/dl (7-24); CREATININE 0.92 mg/dL (0.55-1.02)
[2021-05-11 07:47] VITALS: BP 152/56
[2021-05-11 16:00] VITALS: BP 148/56
[2021-05-11 20:00] VITALS: BP 162/64
[2021-05-12] VITALS: BP 171/61
[2021-05-12 06:14] LABS: BASO % 0.4 % (0.0-1.0); EOS # 0.3 10*3/uL (0.0-0.4); EOS % 4.5 % (1.0-4.0); HEMATOCRIT 30.2 % (37.0-47.0); LYMPH # 0.9 10*3/uL (1.3-4.4); MEAN CELL VOLUME 77.2 fl (81.0-99.0); MEAN CORPUSCULAR HGB 22.5 pg (27.0-31.0); MEAN CORPUSCULAR HGB CONC 29.1 g/dl (33.0-37.0); MONO # 0.3 10*3/uL (0.1-1.0); NEUT # 4.1 10*3/uL (2.3-7.9); NEUT % 73.7 % (47.0-73.0); PLATELET COUNT AUTOMATED 345 10*3/uL (130-400); RED BLOOD COUNT 3.91 10*6/uL (4.10-5.10); RED CELL DISTRI WIDTH 17.9 % (0-14.5); WHITE BLOOD COUNT 5.6 10*3/uL (4.8-10.8)
[2021-05-12 06:30] LABS: BUN 18 mg/dl (7-24); CHLORIDE 113 mmol/L (98-107); CREATININE 0.89 mg/dL (0.55-1.02); POTASSIUM 4.1 mmol/L (3.5-5.1); SODIUM 141 mmol/L (136-145)
[2021-05-12 08:00] VITALS: BP 152/74
[2021-05-12 12:00] VITALS: BP 152/54
[2021-05-12 20:00] VITALS: BP 159/65
[2021-05-13] VITALS: BP 158/61
[2021-05-13 06:20] LABS: BASO % 0.5 % (0.0-1.0); EOS # 0.2 10*3/uL (0.0-0.4); EOS % 3.8 % (1.0-4.0); LYMPH % 16.7 % (27.0-41.0); MEAN CELL VOLUME 75.2 fl (81.0-99.0); MEAN CORPUSCULAR HGB 22.1 pg (27.0-31.0); MEAN CORPUSCULAR HGB CONC 29.4 g/dl (33.0-37.0); MEAN PLATELET VOLUME 9.1 fl (9.6-12.3); MONO # 0.3 10*3/uL (0.1-1.0); MONO % 4.9 % (3.0-9.0); NEUT # 4.3 10*3/uL (2.3-7.9); NEUT % 73.8 % (47.0-73.0); PLATELET COUNT AUTOMATED 361 10*3/uL (130-400); RED BLOOD COUNT 4.12 10*6/uL (4.10-5.10); RED CELL DISTRI WIDTH 17.7 % (0-14.5); WHITE BLOOD COUNT 5.9 10*3/uL (4.8-10.8)
[2021-05-13 06:51] LABS: BUN 18 mg/dl (7-24); CHLORIDE 109 mmol/L (98-107); POTASSIUM 3.9 mmol/L (3.5-5.1); SODIUM 140 mmol/L (136-145)
[2021-05-13 06:53] LABS: CREATININE 0.86 mg/dL (0.55-1.02)
[2021-05-13 08:00] VITALS: BP 165/66
[2021-05-13] MEDS ORDERED: SEPTDS PO (10:21)
[2021-05-13] MEDS ORDERED: PERCOCET 5-3251 EACH PO (10:21)
[2021-05-13] MEDS ORDERED: LASIX20 MG PO (10:21)
[2021-05-13 12:00] VITALS: BP 160/56
== END 2021-05-13 13:52 | DRG 300 ==
LOC: ED 13:06 → 5E 16:03 → EDHOLD 16:03 → 5E 17:25
PROVIDERS: Family Medicine; Internal Medicine; Physician Assistant; ADMIT Internal Medicine; ATTEND Internal Medicine
DX: I70.242 Atherosclerosis of native arteries of left leg with ulceration of calf (principal); E87.2 Acidosis; E44.0 Moderate protein-calorie malnutrition; Z68.41 Body mass index [BMI] 40.0-44.9, adult; I70.233 Atherosclerosis of native arteries of right leg with ulceration of ankle; L89.222 Pressure ulcer of left hip, stage 2; L97.311 Non-pressure chronic ulcer of right ankle limited to breakdown of skin; L97.221 Non-pressure chronic ulcer of left calf limited to breakdown of skin; L97.211 Non-pressure chronic ulcer of right calf limited to breakdown of skin; I70.232 Atherosclerosis of native arteries of right leg with ulceration of calf; G62.9 Polyneuropathy, unspecified; I87.2 Venous insufficiency (chronic) (peripheral); R53.1 Weakness; D50.9 Iron deficiency anemia, unspecified; E87.8 Other disorders of electrolyte and fluid balance, not elsewhere classified; R73.9 Hyperglycemia, unspecified; M19.91 Primary osteoarthritis, unspecified site; E66.01 Morbid (severe) obesity due to excess calories; Z96.1 Presence of intraocular lens; Z96.651 Presence of right artificial knee joint; E55.9 Vitamin D deficiency, unspecified; S70.312A Abrasion, left thigh, initial encounter; I11.0 Hypertensive heart disease with heart failure; M81.0 Age-related osteoporosis without current pathological fracture; Z20.822 Contact with and (suspected) exposure to COVID-19; I50.9 Heart failure, unspecified; X58.XXXA Exposure to other specified factors, initial encounter; Y93.89 Activity, other specified; Y92.89 Other specified places as the place of occurrence of the external cause; Y99.8 Other external cause status; Z98.49 Cataract extraction status, unspecified eye; Z90.711 Acquired absence of uterus with remaining cervical stump; Z87.891 Personal history of nicotine dependence; Z82.49 Family history of ischemic heart disease and other diseases of the circulatory system; Z85.038 Personal history of other malignant neoplasm of large intestine; Z92.21 Personal history of antineoplastic chemotherapy; Z92.3 Personal history of irradiation; Z91.81 History of falling; Z79.899 Other long term (current) drug therapy; Z79.02 Long term (current) use of antithrombotics/antiplatelets

== ENCOUNTER 2022-06-13 16:49 | Emergency (ER) | payer MEDICARE, OTHER ==
[~2022-06-13] VITALS: Ht 177.8 cm; Wt 122.0 kg
[~2022-06-13 16:49] MED LIST changes: +AMANTADINE HCL100 M1 PO; +AZILECT1 MG PO; +CLONAZEPAM0.25 MG PO; +DRONABINOL2.5 MG PO; +DULOXETINE HCL60 MG PO; +EXELON1 EAC1 T; +HYDROCHLOROTH12.5 M2 PO; +LASIX20 MG PO; +LOSARTAN POTASS50 M1 PO; +NUPLAZID34 MG PO; +ONDANSETRON4 MG SL; +PERCOCET 5-3251 EACH PO; +POTASSIUM CHLO10 ME4 PO; +PRAMIPEXOLE DIHY1 MG PO; +PRAVASTATIN SOD10 MG PO; +RYTARY ER 36.21 EACH PO; +SEPTDS PO; +TRAZODONE50 MG PO; +VAZALORE81 MG PO; +VIBRAMYCIN HYC100 MG PO
[2022-06-13 17:55] LABS: BASO % 0.4 % (0.0-1.0); EOS # 0.2 10*3/uL (0.0-0.4); EOS % 2.2 % (1.0-4.0); HEMATOCRIT 33.8 % (37.0-47.0); LYMPH % 11.3 % (27.0-41.0); MEAN CELL VOLUME 75.8 fl (81.0-99.0); MEAN CORPUSCULAR HGB 22.9 pg (27.0-31.0); MEAN CORPUSCULAR HGB CONC 30.2 g/dl (33.0-37.0); MEAN PLATELET VOLUME 9.6 fl (9.6-12.3); MONO # 0.4 10*3/uL (0.1-1.0); MONO % 4.5 % (3.0-9.0); NEUT # 6.9 10*3/uL (2.3-7.9); NEUT % 81.4 % (47.0-73.0); PLATELET COUNT AUTOMATED 452 10*3/uL (130-400); RED BLOOD COUNT 4.46 10*6/uL (4.10-5.10); RED CELL DISTRI WIDTH 16.1 % (0-14.5); WHITE BLOOD COUNT 8.5 10*3/uL (4.8-10.8)
[2022-06-13 18:23] LABS: ALKALINE PHOSPHATASE 100 U/L (45-117); BUN 16 mg/dl (7-24); CHLORIDE 108 mmol/L (98-107); CREATININE 0.93 mg/dL (0.55-1.02); LIPASE 90 U/L (73-393); POTASSIUM 3.5 mmol/L (3.5-5.1); SGOT/AST 11 IU/L (3-35); SGPT/ALT 7 U/L (12-78); SODIUM 139 mmol/L (136-145); TOTAL PROTEIN 8.3 gm/dL (6.4-8.2)
[2022-06-13 19:40] LABS: BILIRUBIN Negative (Negative); BLOOD 2+ (Negative); CLARITY Turbid (Clear); COLOR Yellow (Yellow); GLUCOSE Negative (Negative); KETONE Trace (Negative); LEUKO ESTERASE 3+ (Negative); NITRITE Negative (Negative); PH 5.5 (4.5-8.0); SPECIFIC GRAVITY 1.025 (1.001-1.030)
[2022-06-13 19:56] LABS: WBC TNTC wbc/hpf (0-5)
[2022-06-13] MEDS ORDERED: AMOX-CLAV 875-1 EACH PO (20:21)
== END 2022-06-13 20:57 ==
LOC: ED 16:49
PROVIDERS: Emergency Medicine
DX: N39.0 Urinary tract infection, site not specified (principal); Z98.890 Other specified postprocedural states; Z90.711 Acquired absence of uterus with remaining cervical stump; Z87.891 Personal history of nicotine dependence